=== PATIENT | female | born 1945 | race Caucasian/White ===

== ENCOUNTER 2019-07-02 13:17 | Inpatient (IN) | payer MEDICARE ==
[~2019-07-02] VITALS: Ht 162.5 cm; Wt 97.2 kg
--- NOTE | ~2019-07-02 | WRIGHTHP ---
[place], [place] PATIENT HISTORY AND PHYSICAL EXAM NAME[id number] UNIT #: [id number] ROOM: 532 DOCTOR: CAMILA COOK DPM BIRTHDATE: [birth year] DOS: 07/02/2019 INDICATION: The patient is seen for a wet gangrene of the left great toe. She had an elevated white count consistent with infection. In talking with the patient, she does not know when she developed this, and is a very poor historian and obviously has neuropathy. She was brought in the hospital, admitted and she understands she may lose part of her toe if not part of her foot and possibly leg. With this in mind, she understands. She understands and consents. The intention is to do limb salvage. With this in mind, she agreed to consent to site marking and agreed with the perioperative management. Her granddaughter was there in the preoperative holding area, understanding pros, cons, risks, and benefits. CAMILA COOK DPM CM:HISPHYS:PATIENT HISTORY AND PHYSICAL EXAMINATION 1254 [id number] CAMILA COOK DPM 07/18/19 1448 interface
--- NOTE | ~2019-07-02 | PR ---
[place], [place] PROGRESS NOTE [id number] UN[facility] #: [id number] ROOM: 532 DOCTOR: ANKUSH OATES DPM BIRTHDATE: [birth year] DOS: 07/06/2019 SUBJECTIVE: The patient was seen for postop of amputation, left great toe. The patient is resting comfortably in bed. OBJECTIVE FINDINGS: Posterior splint, compressive cast, and wound VAC in place. No breakthrough bleeding. No signs of calf pain or complication. ASSESSMENT: Postop left. PLAN: Continue offloading wound VAC and dressing. Recheck for followup tomorrow. ANKUSH OATES DPM CM:VALERIA [id number] ANKUSH OATES DPM 07/06/19 1312 interface
--- NOTE | ~2019-07-02 | O ---
[place], [place] OPERATIVE NOTE NAME: ERNESTINA ROCHA UNIT #: [id number] ROOM: 532 DOCTOR: CAMILA COOK DPM BIRTHDATE: [birth year] DOS: 07/02/2019 SURGEON: Camila Cook DPM ASSISTANTS: 1. Dr. Timmy Negron (fellow). 2. Kvng Echeverria, PGY-3. PREOPERATIVE DIAGNOSIS: Osteomyelitis of the left great toe and possible first metatarsal. POSTOPERATIVE DIAGNOSIS: Osteomyelitis of the left great toe and possible first metatarsal. PROCEDURE: 1. Incision and drainage, bone debridement of the great toe and part of first metatarsal. 2. Application of negative pressure therapy and wound VAC. DESCRIPTION OF PROCEDURE: The patient was seen in preoperative holding area, appropriate site marking was performed. She and her family concurred. She was brought into OR, placed on the OR table and anesthesia was achieved. Once the anesthesia was achieved, her left leg was prepped and draped in sterile fashion. Appropriate time-out was performed and every one concurred. PROCEDURE #1: INCISION AND DRAINAGE, BONE DEBRIDEMENT, BONE BIOPSY OF THE LEFT LEG: At this time, the wound was noted to be very necrotic and a full-thickness sharp excisional debridement was performed with a #10 blade, excising and removing the soft tissue. The soft tissue was sent for Gram stain, aerobic, anaerobic, fungal, acid fast as well as a biopsy. Next, at this time using rongeurs and curettes, the bone was debrided extensively on the first metatarsal. Bone was sent for Gram stain, aerobic, fungal, acid fast, as well as biopsy. Significant amount of time was set preparing and irrigating the wound. The wound was irrigated significantly. PROCEDURE #2: APPLICATION OF NEGATIVE PRESSURE THERAPY: At this time, a KCI wound VAC was applied at 200 mmHg under continuous fashion. Dry sterile dressing applied to the left lower extremity. She tolerated the procedure and anesthesia well, left the OR with vital signs stable and vascular intact. [place], [place] OPERATIVE NOTE NAME: ERNESTINA ROCHA UNIT #: [id number] ROOM: 532 DOCTOR: CAMILA COOK DPM BIRTHDATE: [birth year] CAMILA COOK DPM CM:OPRECORD:OPERATIVE NOTE 1254 1423 CAMILA COOK DPM 07/03/19 1545 interface
--- NOTE | ~2019-07-02 | PR ---
[place], [place] PROGRESS NOTE NAME: ERNESTINA ROCHA UNIT #: [id number] ROOM: 532 DOCTOR: DALJIT EUGENEJANUARY BIRTHDATE: [birth year] DOS: 07/07/2019 SUBJECTIVE: The patient is a 74-year-old female who is being followed for wet gangrene of her left talus. 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 She also had left leg cellulitis. She is currently on IV Zosyn and vancomycin. WBCs are improving down to 12.6 at last check on the . She has been afebrile, has occasional pain in her left foot. Denies nausea, vomiting or diarrhea. Has a dry cough, no shortness of breath. Labs vancomycin trough 12.1. Reviewing her cultures. Admitting blood cultures with Adri cuello. Foot cultures grew Proteus. Left great toe culture grew E. coli and Morganella. Urine culture grew E. coli. Repeat blood cultures have been sterile. PHYSICAL EXAMINATION: VITAL SIGNS: Temperature 98.2, pulse 74, respirations 20, BP 153/89. GENERAL: A 74-year-old female, in no acute distress. HEAD, EYES, EARS, NOSE AND THROAT: Normocephalic and have strabismus. NECK: Supple. No thrush. LUNGS: Clear to auscultation bilaterally. Respirations even and unlabored. HEART: Regular rhythm. No murmur appreciated. ABDOMEN: Soft, nondistended. EXTREMITIES: No edema. She has PICC in the right upper extremity. Dressing dry and intact. Bilateral feet are dressed. Left with a bulky dressing with a wound VAC in place. SKIN: Warm, dry, free of rashes. ASSESSMENT: Left hallux wet gangrene, status post amputation at the MTP. Finegoldia bacteremia would have to question of possible contaminant versus true bacteremia. PLAN: She is to continue vancomycin and Zosyn, anticipated for 2 weeks of IV antibiotics. JANUARY JABIER BOCANEGRA [place], [place] PROGRESS NOTE NAME: ERNESTNIA ROCHA UNIT #: [id number] ROOM: 532 DOCTOR: DALJIT PRODUCTION LINE MANAGER,JANUARY BIRTHDATE: [birth year] Supriya Junior MD CM:PNEMI 39 01 DALJIT EUGENE 07/07/191958 interface
--- NOTE | ~2019-07-02 | EKG ---
[place], [place] ELECTROCARDIOGRAM REPORT NAME: ERNESTINA ROCHA UNIT #: [id number] ROOM: 532 DOCTOR: TAMMY DRAFT REPORT BIRTHDATE: [birth year] [facility] Test Date: 2019-07-02 Test Time: 13:55:21 Pat Name: ERNESTINA ROCHA Department: Room: 532 Gender: F Ibm Bpm Architect: Ladonna Novak : 1945 Requested By: PB SALVADOR Order Number: [id number] Reading MD: Dion Roach MD Measurements Intervals [place] Rate: 117 P: 35 VA: 159 QRS: 32 QRSD: 88 T: 44 QT: 306 QTc: 427 Interpretive Statements Sinus tachycardia ST elevation, consider inferior injury Electronically Signed On 07-03-2019 14:13:19 PDT by Dion Roach MD CM:EKGRPT:ELECTROCARDIOGRAM REPORT 1355 1413 PB MUNOZ DRAFT REPORT PB SALVADOR MD
--- NOTE | ~2019-07-02 | WRIGHTHP ---
[place], [place] PATIENT HISTORY AND PHYSICAL EXAM [id number] UN[facility] #: [id number] ROOM: 532 DOCTOR: CAMILA COOK DPM BIRTHDATE: [birth year] DOS: 07/02/2019 LOWER EXTREMITY PHYSICAL EXAM: VASCULAR: There is certainly a significant amount of decrease in pedal pulses; however, hard to tell if there is now severe peripheral edema. She has very significant peripheral edema 3/5 on the right lower leg and foot. She did have conditions of the skin where there appeared to be a component of vascular disease associated with this. NEUROLOGICAL: Complete loss of protective sensation secondary to peripheral neuropathy. DERMATOLOGIC: Open necrotic tissue of distal aspect of great toe. The wound is necrotic and there is a foul odor noted to it as well. MUSCULOSKELETAL: There is a loss of function of the first ray. ORTHOPEDIC EXAM: Consistent with gangrene and osteomyelitis of the right first great toe. CAMILA COOK DPM CM:HISPHYS:PATIENT HISTORY AND PHYSICAL EXAMINATION 1254 1413 CAMILA COOK DPM 07/03/19 1515 interface
--- NOTE | ~2019-07-02 | PR ---
[place], [place] PROGRESS NOTE NAME: ERNESTINA ROCHA UNIT #: [id number] ROOM: 532 DOCTOR: FRANCISCO BURNS MD BIRTHDATE: [birth year] DOS: 07/07/2019 ADDENDUM I agree with the assessment and plan, reviewed the labs and imaging, made the necessary changes in the note. It also contains attestation to the addendum done on the same day, 07/07/2019. Francisco Burns MD CM:VALERIA [id number] FRANCISCO BURNS MD 08/08/19 0357 interface
[~2019-07-02 13:17] MED LIST: ASPIRIN EC81 MG PO; COZAAR100 MG PO; GLIPIZIDE10 MG PO; GLYBURIDE; HUMULIN 70/30 710 M1 SC; HYDR12.5C PO; LOPID600 MG PO; LOPRESSOR50 MG PO; METFORMIN1000 MG PO; OTHER MEDS
[2019-07-02 13:20] VITALS: BP 144/60
[2019-07-02 14:18] LABS: BASO # 0.1 10*3/uL (0.0-0.1); BASO % 0.3 % (0.0-1.0); EOS % 0.2 % (1.0-4.0); HEMATOCRIT 40.7 % (37.0-47.0); HEMOGLOBIN 13.5 g/dl (12.0-16.0); LYMPH # 1.4 10*3/uL (1.3-4.4); LYMPH % 9.9 % (27.0-41.0); MEAN CELL VOLUME 89.1 fl (81.0-99.0); MEAN CORPUSCULAR HGB 29.5 pg (27.0-31.0); MEAN CORPUSCULAR HGB CONC 33.2 g/dl (33.0-37.0); MONO % 6.9 % (3.0-9.0); NEUT # 11.9 10*3/uL (2.3-7.9); NEUT % 82.3 % (47.0-73.0); PLATELET COUNT AUTOMATED 386 10*3/uL (130-400); RED BLOOD COUNT 4.57 10*6/uL (4.10-5.10); RED CELL DISTRI WIDTH 12.2 % (0-14.5); WHITE BLOOD COUNT 14.5 10*3/uL (4.8-10.8)
[2019-07-02 14:32] LABS: ACT PARTIAL THROMBO TIME 26.3 SECONDS (20.0-32.1)
[2019-07-02 14:35] LABS: ALBUMIN 2.8 gm/dl (3.1-4.5); ALKALINE PHOSPHATASE 126 U/L (45-117); BUN 17 mg/dl (7-24); CHLORIDE 96 mmol/L (98-107); CREATININE 1.09 mg/dL (0.55-1.02); SGOT/AST 21 IU/L (3-35); SGPT/ALT 18 U/L (12-78); SODIUM 131 mmol/L (136-145); TOTAL PROTEIN 8.8 gm/dL (6.4-8.2)
[2019-07-02 14:40] LABS: TROPONIN I < 0.015 ng/ml (<0.045)
--- NOTE | 2019-07-02 15:10 | NUR ---
WOUND 1 NACROTIC/GANGOROUS LEFT GREAT TOE WOUND 2 RIGHT FOOT INCLUDING TOES. EDEMA, ERYTHEMA OPEN AREAS ON TWO OF THE TOES. WOUND 3 LEFT FOOT MINUS TOES. ERYTHEMA AND EDEMA WOUND 4 RIGHT OUTER ELBOW ABRASIONS, SCABS, ERYTHEMA WOUND 5 RIGHT SIDE OF THE ABD TO MIDDLE THIGH LARGE LESIONS WITH ERYTHEMA AROUND THE SITES WOUND 6 BILATERAL BUTTOCK, ERYTHEMA AND LARGE LESIONS/RASH, AN OPEN AREA ON THE RIGHT BUTTOCK WOUND 7 BACK OF BOTH LEGS LARGE LESIONS/RASH WITH ERYTHEMA SURROUNDING THE SITES WOUND 8 FRONT OF BOTH LEGS. EDEMA, ERYTHEMA SOME LESIONS/RASH WOUND 9 ABD/PELVIC AREA. MOSITURE RELEATED SKIN DISORDER ERYTHEMA WOUND 10 PUBIC/VAGINAL, ERYTHEMA, ESCORIATION. THE PT WOULD NOT ALLOW A PICTURE OF THIS AREA.
--- NOTE | 2019-07-02 15:33 | NUR ---
THE PT IS INCONTINENT. A URINE SAMLE HAS NOT BEEN PROVIDED YET
[2019-07-02 16:00] VITALS: BP 122/70
--- NOTE | 2019-07-02 16:25 | NUR ---
US CALLED AND ASKED FOR HELP WITH THE PATIENT. SHE IS GRABBING THE PROBE. PATIENT ATTENDENT KAYDEN WENT OVER THE HELP
[2019-07-02 17:19] VITALS: BP 157/67
[2019-07-02 17:31] LABS: BILIRUBIN NEGATIVE (NEGATIVE); BLOOD 2+ (NEGATIVE); CLARITY CLOUDY (CLEAR); COLOR YELLOW (YELLOW); GLUCOSE 1+ (NEGATIVE); KETONE 1+ (NEGATIVE); LEUKO ESTERASE 2+ (NEGATIVE); NITRITE POSITIVE (NEGATIVE); SPECIFIC GRAVITY 1.025 (1.005-1.030)
[2019-07-02 17:42] LABS: BACTERIA 4+; WBC TNTC wbc/hpf (0-5)
[2019-07-02 17:45] VITALS: BP 122/70
--- NOTE | 2019-07-02 17:45 | NUR ---
A 74, admitted to 5E, under the services of EMMA Peraza DO with a diagnosis of NECROSIS OF LEFT GREAT TOE, SEPSIS. Chief complaint is WOUND CHECK. Patient arrived via stretcher from ER. Monitor applied. Initial assessment completed. Vital signs taken and recorded. EMMA PERAZA DO notified of admission to the unit. Orders received. See assessment for past medical history, medications and allergies. Patient and/or family oriented to unit. [facility] FLOOR visitation policy reviewed. Clothing/patient valuable form completed. RICKY PATEL
[2019-07-02] MEDS ORDERED: CLOPIDOGREL75 MG PO (18:08)
[2019-07-02] MEDS ORDERED: LEVEMIR FL100 UNIT/1 SC (18:08)
[2019-07-02] MEDS ORDERED: HYDROXYZINE HCL25 MG PO (18:09)
[2019-07-02 20:00] VITALS: BP 143/66
[2019-07-03] VITALS (9 sets, daily range): BP systolic 92–148; BP diastolic 38–95
--- NOTE | 2019-07-03 00:23 | NUR ---
PATIENT MEDICATED WITH TYLENOL FOR TEMP OF 100.4. WILL MONITOR FOR EFFECTIVENESS.
--- NOTE | 2019-07-03 06:14 | NUR ---
ROCHAERNESTINA Pantoja [id number] Please refer to the physician's history and physical for past medical history, comorbid conditions, and allergies. Diagnosis: NECROSIS TOE,SEPSIS Yaw Score: 8,VERY HIGH RISK WOUND DESCRIPTIONS: Wound Number: 1 Location of the wound: Left great toe Type of wound: unstageable Thickness: Full Size: 8.0cm x 14.5cm x >0.1cm Tunneling: Unable to determine Undermining: Unable to determine Sinus Tract: Unable to determine Presence of Exudate: Purulent Amount: Moderate Color: Black, yellow, red Odor: Foul Periwound Skin Appearance: Erythema Wound edges: approximated Pain (associated with wound): tender to touch How does patient state this happened? pt stated she doesn't know how long this has been going on but went to the doctors yesterday and they sent her here for an evaluation. Pt had ID in ER by podiatry and area was packed and is scheduled for surgery today. Wound Number: 2 Location of the wound: right 3rd toe Type of wound: unstageable Thickness: Full Size: 1.5cm x 1.1cm x 0.1cm Tunneling: none Undermining: none Sinus Tract: none Presence of Exudate: Serous Amount: Light Color: Brown, yellow, red Odor: None Periwound Skin Appearance: Erythema Wound edges: approximated Pain (associated with wound): none at time of assessment How does patient state this happened? pt stated she is unsure when this started Wound Number: 3 Location of the wound: left foot 2nd toe Type of wound: unstageable Thickness: Full Size: 1.5cm x 5.5cm x 0.1cm Tunneling: none Undermining: none Sinus Tract: none Presence of Exudate: Purulent Amount: Light Color: Brown, yellow, black Odor: foul Periwound Skin Appearance: Erythema Wound edges: approximated Pain (associated with wound): none at time of assessment How does patient state this happened? pt is unsure when this started Wound Number: 4 Location of the wound: right outer elbow Thickness: Full Size: 2.0cm x 1.7cm x <0.1cm Tunneling: none Undermining: none Sinus Tract: none Presence of Exudate: none Amount: None Color: brown, yellow Odor: None Periwound Skin Appearance: Scar Wound edges: approximated Pain (associated with wound): none at time of assessment How does patient state this happened? pt stated she fell multiple times and is unsure of when this occured Wound Number: 5 Location of the wound: right buttocks distal Type of wound: stage 3 Thickness: Full Size: 0.7cm x 0.7cm x <0.1cm Tunneling: none Undermining: none Sinus Tract: none Presence of Exudate: Serosanguineous Amount: Light Color: Yellow, red Odor: None Periwound Skin Appearance: erythema Wound edges: approximated Pain (associated with wound): none at time of assessment How does patient state this happened? pt stated she fell multiple times and was unable to get up Wound Number: 6 Location of the wound: right buttocks proximal Type of wound: unstageable Thickness: Full Size: 0.4cm x 0.4cm x <0.1cm Tunneling: none Undermining: none Sinus Tract: none Presence of Exudate: none Amount: None Color: Black Odor: None Periwound Skin Appearance: Erythema Wound edges: approximated Pain (associated with wound): none at time of assessment How does patient state this happened? pt stated she fell multiple times and was unable to get up Wound Number: 7 Location of the wound: intergluteal fold Type of wound: stage 2 Thickness: Partial Size: 1.0cm x 0.5cm x 0.1cm Tunneling: none Undermining: none Sinus Tract: none Presence of Exudate: Serosanguineous Amount: Light Color: Red Odor: None Periwound Skin Appearance: Normal Wound edges: approximated Pain (associated with wound): none at time of assessment How does patient state this happened? pt stated she fell multiple times and was unable to get up Wound Number: 8 Location of the wound: right 5th toe Type of wound: unstageable Thickness: Full Size: 0.4cm x 0.4cm x <0.1cm Tunneling: none Undermining: none Sinus Tract: none Presence of Exudate: none Amount: None Color: Brown, red Odor: None Periwound Skin Appearance: erythema Wound edges: approximated Pain (associated with wound): none at time of assessment How does patient state this happened? pt is unsure of when this started Wound Number: 9 Location of the wound: right 5th proximal Type of wound: unstageable Thickness: Full Size: 0.4cm x 0.3cm x <0.1cm Tunneling: none Undermining: none Sinus Tract: none Presence of Exudate: none Amount: None Color: Brown, red Odor: None Periwound Skin Appearance: Erythema Wound edges: approximated Pain (associated with wound): none at time of assessment How does patient state this happened? pt stated she is unsure of when this started Wound Number: 10 Location of the wound: right lateral apsect of lower extremity Thickness: Full Size: 0.4cm x 0.4cm x <0.1cm Tunneling: none Undermining: none Sinus Tract: none Presence of Exudate: none Amount: None Color: Brown, yellow Odor: None Periwound Skin Appearance: Erythema Wound edges: approximated Pain (associated with wound): none at time of assessment How does patient state this happened? pt stated she is unsure of when this happened Wound Number: 11 Location of the wound: right anterior aspect of lower extremity Thickness: Full Size: 0.9cm x 0.4cm x <0.1cm Tunneling: none Undermining: none Sinus Tract: none Presence of Exudate: none Amount: None Color: Brown, yellow Odor: None Periwound Skin Appearance: Erythema Wound edges: approximated Pain (associated with wound): none at time of assessment How does patient state this happened? pt stated she is unsure of when this started Wound Number: 12 Location of the wound: left lower extremity medial aspect Thickness: Full Size: 0.2cm x 0.6cm x <0.1cm Tunneling: none Undermining: none Sinus Tract: none Presence of Exudate: none Amount: None Color: Brown, red Odor: None Periwound Skin Appearance: Erythema Wound edges: approximated Pain (associated with wound): none at time of assessment How does patient state this happened? pt stated she is unsure when this happened Wound Number: 13 Location of the wound: left buttocks, left upper thigh and left lower back Type of wound: DTI Size: 37.0cm x 31.0cm x <0.1cm Tunneling: none Undermining: none Sinus Tract: none Presence of Exudate: none Amount: None Color: Purple, dark red Odor: None Periwound Skin Appearance: Normal Wound edges: approximated Pain (associated with wound): none at time of assessment How does patient state this happened? pt stated that she fell multiple times and was unable to get up Wound Number: 14 Location of the wound: right buttocks, right upper thigh, right lower back Type of wound: DTI Size: 46.0cm x 40.0cm x <0.1cm Tunneling: none Undermining: none Sinus Tract: none Presence of Exudate: none Amount: None Color: Purple, dark red Odor: None Periwound Skin Appearance: Normal Wound edges: approximated Pain (associated with wound): none at time of assessment How does patient state this happened? pt stated that she fell multiple times and was unable to get up Wound Number: 15 Location of the wound: right lateral breast Type of wound: DTI Thickness: Size: 5.0cm x 9.5cm x <0.1cm Tunneling: none Undermining: none Sinus Tract: none Presence of Exudate: Amount: None Color: Purple Odor: None Periwound Skin Appearance: Normal Wound edges: approximated Pain (associated with wound): none at time of assessment How does patient state this happened? pt stated that she fell multiple times and was unable to get up Wound Number: 16 Location of the wound: left 3rd toe Type of wound: unstageable Thickness: Full Size: 0.4cm x 0.2cm x<0.1cm Tunneling: none Undermining: none Sinus Tract: none Presence of Exudate: none Amount: None Color: Black Odor: None Periwound Skin Appearance: erythema Wound edges: approximated Pain (associated with wound): none at time of assessment How does patient state this happened? pt stated that she fell multiple times and was unable to get up Surface the patient is resting on: Isoflex SKIN PREVENTION RECOMMENDATION: 1. Pressure redistribution support surface as appropriate 2. Elevate heels 3. Remove boots/TEDS every shift and reapply 4. Head of bed 30 degrees as tolerated 5. Assess nutrition and hydration 6. Manage moisture 7. Avoid the use of containment devices while in bed 8. Use absorptive products on surfaces limit layers of linens on bed 9. Turn and reposition every 1-2 hours in bed and every 1 hour in chair as tolerated 10. Weight shifts every 15 minutes while up in chair 11. Offloading with pillows or device to keep heels elevated off bed 12. Monitor skin at least every shift 13. Inspect under medical devices twice a day WOUND TREATMENT RECOMMENDATIONS: Podiatry is already on consult. Consult ID for areas to bilateral lower extremities. Patient is scheduled for surgery today await post op orders to bilateral lower extremities. Full thickness guidelines: Cleanse right outer elbow with nss and apply sureprep around the wound therahoney to wound bed and cover with optifoam gentle. Full thickness guidelines: Cleanse right distal buttocks and right proximal buttocks with nss and apply sureprep around the wound therahoney to wound bed and cover with optifoam gentle. Partial thickness guidelines: Cleanse intergluteal fold with nss and apply sureprep around the wound therahoney to wound bed and cover optifoam gentle. DTI guidelines: Cleanse left upper thigh, left buttocks, left lower back, right upper thigh, right buttocks, right lower back and right breast with soap and water pat area dry then apply hydraguard every shift and prn for soiling. Wheelchair cushion when oob, Heel raiser pro boots while in bed. Consult Dr. Hernandes for areas to buttocks and DTI areas.
[2019-07-03 06:15] LABS: BASO # 0.1 10*3/uL (0.0-0.1); BASO % 0.4 % (0.0-1.0); EOS # 0.1 10*3/uL (0.0-0.4); HEMATOCRIT 35.7 % (37.0-47.0); HEMOGLOBIN 11.4 g/dl (12.0-16.0); LYMPH # 2.3 10*3/uL (1.3-4.4); LYMPH % 16.7 % (27.0-41.0); MEAN CELL VOLUME 90.6 fl (81.0-99.0); MEAN CORPUSCULAR HGB 28.9 pg (27.0-31.0); MEAN CORPUSCULAR HGB CONC 31.9 g/dl (33.0-37.0); MEAN PLATELET VOLUME 10.2 fl (9.6-12.3); MONO % 7.7 % (3.0-9.0); NEUT % 73.7 % (47.0-73.0); PLATELET COUNT AUTOMATED 324 10*3/uL (130-400); RED BLOOD COUNT 3.94 10*6/uL (4.10-5.10); RED CELL DISTRI WIDTH 12.3 % (0-14.5); WHITE BLOOD COUNT 13.6 10*3/uL (4.8-10.8)
[2019-07-03 06:51] LABS: ALBUMIN 2.3 gm/dl (3.1-4.5); BUN 14 mg/dl (7-24); CHLORIDE 103 mmol/L (98-107); CREATININE 1.05 mg/dL (0.55-1.02); PHOSPHOROUS 3.1 mg/dL (2.5-4.9); POTASSIUM 3.7 mmol/L (3.5-5.1); SGOT/AST 33 IU/L (3-35); SGPT/ALT 25 U/L (12-78); SODIUM 137 mmol/L (136-145); TOTAL PROTEIN 7.4 gm/dL (6.4-8.2)
[2019-07-03 06:52] LABS: ALKALINE PHOSPHATASE 134 U/L (45-117)
--- NOTE | 2019-07-03 08:22 | NUR ---
Dr. Mcghee notified of wound care recommendations.
--- NOTE | 2019-07-03 09:10 | NUR ---
PT IS OUT OF ROOM IN SURGERY. WILL FOLLOW.
--- NOTE | 2019-07-03 09:13 | NUR ---
Nursing screen received and chart reviewed. Patient admitted for concern of left toe. If there is a change in ADL status or functional transfers, please send OT orders. Thank you. Akosua Hernandez, OTR/L
--- NOTE | 2019-07-03 09:17 | NUR ---
PHYSICAL THERAPY Nursing screen received and chart reviewed. Please order physical therapy evaluation when medially appropriate to participate or if functional decline presents. Thank you. Belkis Aguero,PT,DPT.
--- NOTE | 2019-07-03 09:45 | NUR ---
PT OFF THE FLOOR TO SURGERY.
--- NOTE | 2019-07-03 12:01 | NUR ---
DR. BURNS'S OFFICE NOTIFIED OF CONSULT.
--- NOTE | 2019-07-03 12:45 | NUR ---
ERICA was asked by DANIELLA Fleming, if a report was made to [facility]. After review of the patients MR, ERICA reported the patient to -[facility]. ERICA spoke with Evy and reference number is [id number]. -ERICA Ruvalcaba
--- NOTE | 2019-07-03 14:38 | NUR ---
Joint Maker Machine in to talk to patient. Patient states lives at HOME with ALONE. There are NO steps in the home. Physician: SHRUTHI Pharmacy: [facility] Home health services: NONE Patient's level of ADLs: INDEPENDENT Patient has working utilities: YES DME: [facility] [employer] [facility] Follow-up physician's appointment after d/c: WILL BE MADE BY HOSPITALIST NURSE DIRECTOR ON DISCHARGE Does patient want to access PORTAL?: NO Discharge plan PT LIVES AT HOME ALONE. TALKED WITH HER AT LENGTH ABOUT GOING TO A SKILLED FACILITY BEFORE RETURNING HOME FOR REHAB DUE TO WOUND VAC AND FALLS AT HOME. PT STATES I AM NOT SO SURE, MY SON WILL BE IN TONIGHT AND I WILL TALK TO HIM ABOUT IT. ASKED HER IF I COULD CALL HER SON AND SHE STATES NO I WILL TALK TO HIM. ASK HER TO HAVE NURSE CALL ME WHEN HE CAME IN SO I COULD TALK WITH HIM. ALSO INFORMED RN TO CALL IF SHE SAW SON COME IN. STATES SHE NOT SURE ABOUT GOING ANYWHERE BECAUSE SHE HAS A DOG ASK HER WHO WAS TAKING CARE OF DOG NOW, SHE STATES HER SON IS. I TOLD HER I AM SURE THE SON WANTS HER TO GET BETTER AND STRONGER AND WOULD TAKE CARE OF DOG WHILE SHE IS IN REHAB. SHE STATES YES BUT HE COMPLAINS ABOUT IT. WILL CONTINUE TO FOLLOW WITH PT AND SON. . ZACHARY VILLANUEVA
--- NOTE | 2019-07-03 15:11 | NUR ---
dr. whyte's office notified of consult.
--- NOTE | 2019-07-03 23:28 | NUR ---
PATIENT MEDICATED WITH TYLENOL FOR TEMP OF 100.7. WILL MONITOR FOR EFFECTIVENESS.
[2019-07-04] VITALS: BP 108/51
--- NOTE | 2019-07-04 02:18 | NUR ---
PATIENT REPOSITIONED FOR COMFORT. DENIES ANY PAIN AT THIS TIME. BED ALARM ON AND CALL LIGHT WITHIN REACH.
--- NOTE | 2019-07-04 03:27 | NUR ---
Upon discharge recommend patient to follow up for wound care in outpatient setting continue current wound care orders at discharging facility.
--- NOTE | 2019-07-04 06:52 | NUR ---
DR MAYER CALLED WITH POSITIVE BLOOD CULTURE RESULTS.
[2019-07-04 07:07] LABS: BASO # 0.1 10*3/uL (0.0-0.1); BASO % 0.4 % (0.0-1.0); EOS # 0.3 10*3/uL (0.0-0.4); EOS % 2.2 % (1.0-4.0); HEMATOCRIT 35.2 % (37.0-47.0); HEMOGLOBIN 11.1 g/dl (12.0-16.0); LYMPH # 3.1 10*3/uL (1.3-4.4); LYMPH % 24.5 % (27.0-41.0); MEAN CELL VOLUME 90.5 fl (81.0-99.0); MEAN CORPUSCULAR HGB 28.5 pg (27.0-31.0); MEAN CORPUSCULAR HGB CONC 31.5 g/dl (33.0-37.0); MEAN PLATELET VOLUME 10.4 fl (9.6-12.3); NEUT # 8.1 10*3/uL (2.3-7.9); NEUT % 64.3 % (47.0-73.0); PLATELET COUNT AUTOMATED 305 10*3/uL (130-400); RED BLOOD COUNT 3.89 10*6/uL (4.10-5.10); RED CELL DISTRI WIDTH 12.6 % (0-14.5); WHITE BLOOD COUNT 12.6 10*3/uL (4.8-10.8)
[2019-07-04 07:30] LABS: BUN 12 mg/dl (7-24); CHLORIDE 107 mmol/L (98-107); POTASSIUM 3.8 mmol/L (3.5-5.1); SGOT/AST 34 IU/L (3-35); SGPT/ALT 27 U/L (12-78); SODIUM 137 mmol/L (136-145)
[2019-07-04 07:33] LABS: ALKALINE PHOSPHATASE 149 U/L (45-117); CREATININE 0.86 mg/dL (0.55-1.02)
--- NOTE | 2019-07-04 08:51 | NUR ---
MACHINE OPERATIONS SUPERVISOR spoke with the patient while having her sign her Medicare Rights Form. Patient stated she spoke with her son and they were interested in [facility]. MACHINE OPERATIONS SUPERVISOR spoke with [facility] and their is a female bed available. MACHINE OPERATIONS SUPERVISOR faxed over new referral. Will need PT Eval to complet it. Patient will need a 3 night stay and acceptance from [facility]. -ERICA Ruvalcaba
--- NOTE | 2019-07-04 09:30 | NUR ---
DR ARECHIGA IN TO SEE PT.
--- NOTE | 2019-07-04 11:58 | NUR ---
PT HAS BEEN REFERRED TO [facility]. WILL REQUIRE 3 NIGHT STAY AND ACCEPTANCE. WILL CONTINUE TO FOLLOW.
[2019-07-04 12:00] VITALS: BP 123/60
--- NOTE | 2019-07-04 14:00 | NUR ---
Christine was evaluated by occupational therapy this date. She requires increased assist with ADL's and functional transfers secondary to decreased endurance, decreased balance, right LE pain, and limited right LE weight bearing. Patient is currently NWB on her right LE until further clarification for her surgeon. She requires mod assist for bedmobility and sit - stand activities. She is not able to complete functional transfers with a FWW and maintain NWB right LE. Continued occupational therapy in a SNF is recommended when Christine is discharged. Gerri Ibarra OTR/L
--- NOTE | 2019-07-04 14:05 | NUR ---
PHYSICAL THERAPY Physical therapy evaluation complete, 5E. Full evaluation/details to follow. Moderate complexity PT evaluation (50209) per chart review and evaluation. PT to progress bed mobility, transfers, and gait per POC. Recommend SNF at discharge. Thank you. Belkis Aguero,PT,DPT
[2019-07-04 16:00] VITALS: BP 130/47
[2019-07-04 16:02] LABS: ACID FAST SPEC PROCESSING Tissue Grinding (.)
[2019-07-04 16:02] LABS: ACID FAST SPEC PROCESSING Tissue Grinding (.)
--- NOTE | 2019-07-04 18:31 | NUR ---
WAYNE CATHETER REMOVED PER ORDER. PATIENT TOLERATED WELL. TIP INSPECTED. 300ML IN BAG AT TIME OF REMOVAL. PATIENT RESTING IN BED, CALL LIGHT WITHIN REACH. VOICES NO OTHER CONCERNS AT THIS TIME.
[2019-07-04 20:00] VITALS: BP 152/58
[2019-07-05] VITALS: BP 143/68
--- NOTE | 2019-07-05 03:23 | NUR ---
24 HR chart check completed.
--- NOTE | 2019-07-05 04:30 | NUR ---
PATIENT SLEEPING QUIETLY. NO DISTRESS NOTED. CALL LIGHT WITHIN REACH. WOUND VAC INTACT.
--- NOTE | 2019-07-05 07:40 | NUR ---
COIL MACHINE SUPERVISOR faxed updates to Cecy JIN -ERICA Ruvalcaba
--- NOTE | 2019-07-05 07:56 | NUR ---
FIRST ZOSYN PULLED WAS WASTED DUE TO LEAKING. PATIENT CREDITED BACK.
[2019-07-05 08:29] VITALS: BP 148/74
[2019-07-05 10:00] VITALS: BP 155/50
--- NOTE | 2019-07-05 11:15 | NUR ---
PHYSICAL THERAPY Patient seen this am 1:1 for therapy visit and was resting supine in bed upon therapist arrival. Patient identified by name / and reports no c/o's of pain at this time. Patient presents with L LE wound vac and transfers supine to sit EOB with MOD A. Patient performed several sit to stand transfers, wh walker standing support, MOD A and NWB on L LE. Patient completed SPT to bedside chair, needing several v/c's to improve transfer technique / performance. Patient remained semi reclined in chair with call light, tray table, telephone and body alarm for safety. Will continue per POC as tolerated, total treatment time 13 minutes. Zachary Valerio, RESIDENTIAL LIFE DIRECTOR
--- NOTE | 2019-07-05 11:23 | NUR ---
OT NOTE Pt was seen this A.M. 1:1 for 23 minute OT session. Upon arrival pt was supine in bed. Pt identified by name and and had no complaints at this time. Pt presented to therapy with wound vac on L foot and IV in LUE both remained in place throughout entire session. Pt transferred supine to sit EOB with modA X 1 and pt provided with education on techniques for increased I in bed mobility. While sitting EOB requested for pt to stacey R sock and pt was unable at first. Educated pt on compensatory technique and she was then able to complete with SBA. Sit to stand completed from bed level with modA X 2 and use of w/w for UE support. Throughout pt required constant verbal prompts for maintaining NWB status on the LLE and pt was non compliant throughout. Challenged pt's static standing tolerance needed for increased I in self care tasks and functional transfers. Pt was able to tolerate aprox 1 minute before sitting due to fatigue. Extra time given throughout session due to pt's slow rate of performance and verbal prompts for encouragement. Pt was left sitting uproght in the recliner with call light in hand, tray table in place, and body alarm activated for safety. Continue with rec D/C plan to SNF. WILLIAM Deleon
[2019-07-05 12:00] VITALS: BP 96/74
--- NOTE | 2019-07-05 13:00 | NUR ---
DR TOM IN TO SEE PT, ORDERS RECEIVED FOR PICC LINE INSERTION. SURGERY CALLED AND NOTIFIED.
--- NOTE | 2019-07-05 14:22 | NUR ---
PHYSICAL THERAPY CO-SIGN I approve of the Physical Therapy notes written above. IRASEMA JEREZ PT,DPT
--- NOTE | 2019-07-05 14:25 | NUR ---
OT CO-SIGN I APPROVE OF THE NOTES WRITTEN ABOVE. THANK YOU. KUMAR CALL, OTR/L
--- NOTE | 2019-07-05 14:58 | NUR ---
Patient has been accepted at [facility] and can go when medically stable. -ERICA Ruvalcaba
--- NOTE | 2019-07-05 15:41 | NUR ---
DR PELLETIER CALLED AND NOTIFIED OF WOUND VAC SAYING BLOCKAGE. HE STATES HE WILL COME SEE THE PATIENT.
[2019-07-05 16:00] VITALS: BP 155/50
--- NOTE | 2019-07-05 16:00 | NUR ---
DR PELLETIER IN TO SEE PT.
--- NOTE | 2019-07-05 17:00 | NUR ---
CALLED DR PELLETIER RE: WOUND VAC ALARMING BLOCKAGE. WILL AWAIT RETURN CALL.
--- NOTE | 2019-07-05 17:37 | NUR ---
DR PELLETIER CALLED RE: BLOCKAGE ALARM. DR PELLETIER WANTS THE WOUND VAC POWERED OFF AND TURNED BACK ON. TO SEE IF THAT ALLIVATES THE PROBLEM. WILL MONITOR
--- NOTE | 2019-07-05 18:19 | NUR ---
DR STOCK HERE TO SEE PT. DRESSING SURROUNDING WOUND VAC REMOVED TUBING WAS KINKED AT TOP. TUBING LIFTED AND SUCTION REACHIEVED. DRSG REAPPLIED. FUNCTIONING PROPERLY AT THIS TIME. WILL MONITOR.
[2019-07-05 20:00] VITALS: BP 151/60
--- NOTE | 2019-07-05 20:00 | NUR ---
24 HOUR CHART CHECK COMPLETE.
[2019-07-06] VITALS: BP 140/55
[2019-07-06 08:00] VITALS: BP 110/75
--- NOTE | 2019-07-06 08:29 | NUR ---
PATIENT REQUESTING PAIN MEDICATION FOR LEFT FOOT PAIN RATED 8/10 ON 0/10 SCALE. NORCO ADMINISTERED PRESCRIBED. WILL MONITOR FOR EFFECTIVENESS.
[2019-07-06 12:00] VITALS: BP 110/75
[2019-07-06 16:00] VITALS: BP 131/91
[2019-07-06 20:00] VITALS: BP 148/61
--- NOTE | 2019-07-06 20:00 | NUR ---
RESTING IN BED VISITING WITH FAMILY MEMBER. AWAKE & ALERT. SKIN WARM & DRY. LUNGS CLEAR BUT DIMINISHED BILATERALLY WITH NO COUGH NOTED AT THIS TIME. PT. VOICES NO C/O AT THIS TIME. NO DISTRESS NOTED. CALL LIGHT WITHIN REACH.
--- NOTE | 2019-07-06 22:00 | NUR ---
BLOOD SUGAR 267; COVERAGE PER EMAR.
[2019-07-07] VITALS: BP 141/57
--- NOTE | 2019-07-07 06:30 | NUR ---
BLOOD SUGAR 178; 3 UNITS OF COVERAGE GIVEN. PT. VOICES NO C/O AT THIS TIME. CALL LIGHT WITHIN REACH; BED IN LOW LOCKED POSITION.
[2019-07-07 08:00] VITALS: BP 142/81
--- NOTE | 2019-07-07 11:24 | NUR ---
DR BECKFORD NOTIFIED OF POSITIVE BLOOD CULTURES MARGARITA ROSALES. NO NEW ORDERS
[2019-07-07 12:00] VITALS: BP 142/61
[2019-07-07 16:00] VITALS: BP 153/89
[2019-07-07 20:00] VITALS: BP 142/48
[2019-07-08] VITALS: BP 150/59
--- NOTE | 2019-07-08 03:30 | NUR ---
24 HR chart check completed.
--- NOTE | 2019-07-08 03:34 | NUR ---
PATIENT RESTING WITH EYES CLOSED. RESPIRATION EASY AND UNLABORED. NO DISTRESS NOTED. WOUND VAC INTACT AND FUNCTIONING.BED ALARM ON AND CALL LIGHT WITHIN REACH. WILL MONITOR.
[2019-07-08 08:00] VITALS: BP 147/57
--- NOTE | 2019-07-08 08:28 | NUR ---
Patient has been accepted at [facility]. RADIO TIME SALES SUPERVISOR faxed updates to Sondra -ERICA Ruvalcaba
[2019-07-08 12:00] VITALS: BP 144/50
[2019-07-08] MEDS ORDERED: ZOSYN 3.373.375 GM/5 IV (12:05)
--- NOTE | 2019-07-08 12:39 | NUR ---
Chasity STERN stated the Wound Vac would be delivered from [facility] between 4-5pm today.-ERICA Ruvalcaba
--- NOTE | 2019-07-08 13:18 | NUR ---
INDUSTRIAL ENERGY ENGINEER faxed over wound care order and medication script to ERICA Olivo
--- NOTE | 2019-07-08 13:45 | NUR ---
PHYSICAL THERAPY PT SUPINE IN BED UPON ARRIVAL. PT IDENTIFIED BY NAME AND . PT AGREED TO ALL PT TREATMENT THIS VISIT. PT PERFORMED BED MOBILITY WITH Giovanni X2 AND VC'S FOR SAFETY AND TECHNIQUE. PT PERFORMED STS X3 TO AND FROM EOB TO FWW WITH VC'S FOR NWB WITH MODa X2. PT WAS NON- COMPLAINANT WITH NWB EVEN WITH CONSTANT VC'S FOR NWB STATUS. PT PERFORMED SIT TO SUPINE WITH Giovanni X2 WITH VC'S FOR NWB. PT SUPINE IN BED WITH BED ALARM ON AND CALL LIGHT IN HAND UPON ARRIVAL. PT REPORTED NO OTHER NEEDS AT THIS TIME. PT SEEN 1:1 FOR 14 MINS. MARIANELA DARNELL PTA
--- NOTE | 2019-07-08 14:00 | NUR ---
OT NOTE Pt was seen this P.M. 1:1 for 15 minute OT session. Upon arrival pt was supine in bed. Pt identified by name and and had complaints of "4/10 L foot pain." Pt presented to therapy with wound vac in place which remained on throughout entire session. Pt transferred supine to sit EOB with Romulo. Pt completed multiple sit to stand transfers from bed level with modA X 2 and use of w/w for UE support. Challenged pt's static standing tolerance needed for increased I in self care tasks and functional transfers, Pt was able to tolerate aprox 1 minute at a time before sitting due to fatigue. Pt required constant verbal prompts for maintaining NWB status due to pt being non complaint. Pt transferred back into bed sit to supine with modA for assist with BLE. Pt was left supine in bed with call light in hand, tray table in place, and bed alarm activated for safety. Continue with rec D/C plan to SNF. WILLIAM Deleon
--- NOTE | 2019-07-08 14:18 | NUR ---
Wound Vac will be delivered to the 4th floor RN Station between 4pm and 5 pm today. Work Clerks on 4th floor and 5th floor are aware that it will be arriving during this time. After wound change if patient is medically stable she can go to [facility]. -ERICA Ruvalcaba
--- NOTE | 2019-07-08 15:30 | NUR ---
MARINE RADIO INSTALLER AND SERVICER received wound vac from [facility]. MARINE RADIO INSTALLER AND SERVICER notified Work Stablehand. MARINE RADIO INSTALLER AND SERVICER had Belkis- Hotel Yardperson notify Dr. Norton. -ERICA Ruvalcaba
[2019-07-08 16:00] VITALS: BP 143/70
--- NOTE | 2019-07-08 16:31 | NUR ---
DR STALEY NOTIFIED THAT PT CAN GO TO [facility].
--- NOTE | 2019-07-08 17:42 | NUR ---
REPORT CALLED TO ANNABELLE ARMANDO.
--- NOTE | 2019-07-08 17:42 | NUR ---
SON PRESENT AND AWARE OF DISCHARGE.
--- NOTE | 2019-07-08 18:20 | NUR ---
PT DISCHARGED AT THIS TIME VIA [facility]. PICC LINE REMAINS IN UPPER RIGHT ARM. WOUND VAC SENT WITH PATIENT THAT ARRIVED TODAY AND HOSPITAL WOUND VAC RETURNED TO FLOOR AND HEADER UP NOTIFIED.
--- NOTE | 2019-07-09 07:52 | NUR ---
OCCUPATIONAL THERAPY CO-SIGN I approve of the Occupational Therapy notes written above. ROSA CARRION OTR/Gladys
--- NOTE | 2019-07-09 08:07 | NUR ---
PHYSICAL THERAPY CO-SIGN I approve of the Physical Therapy notes written above. IRASEMA JEREZ PT, DPT
--- NOTE | 2019-07-17 09:49 | NUR ---
ERICA received call from [facility] ([phone]). She asked what [place] the patient went to and on what date. -ERICA Ruvalcaba
[2019-08-14 16:05] LABS: ACID FAST CULTURE Negative (.)
[2019-08-14 16:05] LABS: ACID FAST CULTURE Negative (.)
== END 2019-07-08 17:42 | disposition other institution (70) | DRG 853 ==
LOC: ED 13:17 → 5E 16:45 → EDHOLD 16:45 → 5E 17:31
PROVIDERS: Emergency Medicine; Internal Medicine; Student in an Organized Health Care Education/Training Program; ADMIT Internal Medicine
DX: A41.89 Other specified sepsis (principal); N17.0 Acute kidney failure with tubular necrosis; E43 Unspecified severe protein-calorie malnutrition; E87.1 Hypo-osmolality and hyponatremia; E13.52 Other specified diabetes mellitus with diabetic peripheral angiopathy with gangrene; I96 Gangrene, not elsewhere classified; L03.116 Cellulitis of left lower limb; M86.8X7 Other osteomyelitis, ankle and foot; R65.20 Severe sepsis without septic shock; I10 Essential (primary) hypertension; E87.8 Other disorders of electrolyte and fluid balance, not elsewhere classified; S90.415A Abrasion, left lesser toe(s), initial encounter; E13.69 Other specified diabetes mellitus with other specified complication; S90.414A Abrasion, right lesser toe(s), initial encounter; E78.5 Hyperlipidemia, unspecified; E13.621 Other specified diabetes mellitus with foot ulcer; S51.001A Unspecified open wound of right elbow, initial encounter; I87.2 Venous insufficiency (chronic) (peripheral); L97.529 Non-pressure chronic ulcer of other part of left foot with unspecified severity; S31.819A Unspecified open wound of right buttock, initial encounter; S81.802A Unspecified open wound, left lower leg, initial encounter; S81.801A Unspecified open wound, right lower leg, initial encounter; E13.40 Other specified diabetes mellitus with diabetic neuropathy, unspecified; S31.829A Unspecified open wound of left buttock, initial encounter; E13.65 Other specified diabetes mellitus with hyperglycemia; B96.20 Unspecified Escherichia coli [E. coli] as the cause of diseases classified elsewhere; X58.XXXA Exposure to other specified factors, initial encounter; Y93.89 Activity, other specified; Y92.89 Other specified places as the place of occurrence of the external cause; Y99.8 Other external cause status; Z87.891 Personal history of nicotine dependence; Z90.49 Acquired absence of other specified parts of digestive tract; Z95.1 Presence of aortocoronary bypass graft; Z90.710 Acquired absence of both cervix and uterus; I25.2 Old myocardial infarction; Z79.4 Long term (current) use of insulin; Z79.02 Long term (current) use of antithrombotics/antiplatelets; Z79.82 Long term (current) use of aspirin; Z79.899 Other long term (current) drug therapy; Z68.36 Body mass index [BMI] 36.0-36.9, adult

== ENCOUNTER → 2019-07-31 | Day surgery (SDC) | payer MEDICARE ==
[~2019-07-31] VITALS: Ht 162.5 cm; Wt 94.3 kg
[~2019-07-31] MED LIST changes: +CLOPIDOGREL75 MG PO; +HYDROXYZINE HCL25 MG PO; +LEVEMIR FL100 UNIT/1 SC; +THEREMS-M1 EACH PO; +ULTRAM50 MG PO; +ZOSYN 3.373.375 GM/5 IV
--- NOTE | ~2019-07-31 | WRIGHTHP ---
[place], [place] PATIENT HISTORY AND PHYSICAL EXAM [id number] UNIT #: [id number] ROOM: DOCTOR: CAMILA COOK DPM BIRTHDATE: [birth year] DOS: 07/31/2019 INDICATION NOTE The patient was seen for post-partial amputation of her first ray in particular her great toe of the left foot. Today she is set for re-debridement, application of Somagen graft and wound VAC. She is aware of pros, cons, risks, benefits, overcorrection, under correction, recurrence, infection, worsening of limb loss, DVT, PE. She understands she is at risk for limb loss in particular and even . With this in mind, she agreed to consent, site marking, agreed to the perioperative management. With this in mind, she agreed with all this and consent was signed. CAMILA COOK DPM CM:HISPHYS:PATIENT HISTORY AND PHYSICAL EXAMINATION 1051 [id number] CAMILA COOK DPM 08/05/19 0953 interface
--- NOTE | ~2019-07-31 | O ---
[place], [place] OPERATIVE NOTE [id number] UNIT #: [id number] ROOM: DOCTOR: CAMILA COOK DPM BIRTHDATE: [birth year] DOS: 07/31/2019 SURGEON: Camila Cook DPM ASSISTANTS: 1. Dr. Timmy Negron. 2. Lucy Gandhi, PGY3. PREOPERATIVE DIAGNOSES: 1. Osteomyelitis of the first metatarsal, left foot. 2. Open wound, medial aspect of second toe down to the fascia. POSTOPERATIVE DIAGNOSES: 1. Osteomyelitis of the first metatarsal, left foot. 2. Open wound, medial aspect of second toe down to the fascia. PROCEDURES: 1. Incision and drainage, bone debridement and bone biopsy of the first metatarsal. 2. Full thickness sharp excision of the second toe down to fascia. 3. Application of SOMAGEN graft. 4. Application of wound VAC. The patient was seen in preoperative holding area. Appropriate site marking was performed. She concurred with consent and preoperative management and site marking. She was brought in OR, placed well padded on OR table where anesthesia was achieved. Once the anesthesia was achieved, appropriate timeout was performed, everybody in the room concurred. PROCEDURE #1: Attention directed to the first metatarsophalangeal joint of the left foot where a wide excision was performed of the soft tissue. All necrotic tissue was excised, removed in total. This was sent for Gram stain, aerobic, anaerobic, fungal, acid fast as well as biopsy of the left wound site of the first metatarsophalangeal joint. Next, bone was debrided, bone was removed. Bone was sent for Gram stain, aerobic, anaerobic, fungal, acid fast as well as biopsy of the left first metatarsal. The area was irrigated with copious amounts of sterile saline. PROCEDURE #2: INCISION AND DRAINAGE, REMOVAL OF DEEP FASCIAL TISSUES OF THE SECOND TOE: Attention was directed to the second toe where a rongeur was used to excise and remove all deep fascial tissues from the second toe, stimulated bleeding. All necrotic tissue was completely exposed at this time. Tissue was sent for Gram stain, aerobic and anaerobic, fungal, acid fast as well. PROCEDURE #3: APPLICATION OF SOMAGEN: SOMAGEN was applied to the wound of the first metatarsal and also medial aspect of the second toe. This was stapled in a usual sterile fashion. PROCEDURE 4: APPLICATION OF NEGATIVE PRESSURE THERAPY, WOUND VAC: This was applied to the first metatarsal area in the usual sterile fashion, set at 200 [place], [place] OPERATIVE NOTE NAME: ERNESTINA ROCHA UNIT #: [id number] ROOM: DOCTOR: CAMILA COOK DPM BIRTHDATE: [birth year] continuous. The rest of the wounds were dressed with Adaptic, 4 x 4s, Nandini in a sterile compressive fashion. She tolerated the procedures and anesthesia well and left the OR with vital signs stable and vascular status intact. CAMILA COOK DPM CM:OPRECORD:OPERATIVE NOTE 1051 [id number] CAMILA COOK DPM 07/31/19 1549 interface
--- NOTE | ~2019-07-31 | WRIGHTHP ---
[place], [place] PATIENT HISTORY AND PHYSICAL EXAM NAME: ERNESTINA ROCHA [facility] #: [id number] UNIT #: [id number] ROOM: DOCTOR: CAMILA COOK DPM BIRTHDATE: [birth year] DOS: 07/31/2019 LOWER EXTREMITY PHYSICAL EXAM: VASCULAR: She has palpable pedal pulses, 2/4 DP and PT. Good cap fill time. NEUROLOGICAL: She has loss of protective sensation secondary to diabetic peripheral neuropathy. DERMATOLOGIC: She has an open wound of the previous amputation site, which measures 4.0 x 4.0 cm, full thickness in nature, right down to the bone and cartilage of the first metatarsal head. There is necrotic tissue around the area. There is no cardinal signs of acute infection, chronic and necrotic tissue noted. All surgical wound of the second toe medial aspect measures 1.0 x 0.5 down to the fascia. No evidence of acute infection, drainage, foul odor, undermining tunneling noted either. MUSCULOSKELETAL: She has a tight posterior muscle group. ORTHOPEDIC: Osteomyelitis of the first metatarsal of the left foot. CAMILA COOK DPM CM:HISPHYS:PATIENT HISTORY AND PHYSICAL EXAMINATION 1051 [id number] CAMILA COOK DPM 07/31/19 1243 interface
[2019-07-31 10:52] VITALS: BP 120/55
[2019-07-31 11:05] VITALS: BP 136/57
[2019-07-31 11:20] VITALS: BP 131/81
[2019-08-01 15:09] LABS: ACID FAST SPEC PROCESSING Tissue Grinding (.)
[2019-09-11 15:10] LABS: ACID FAST CULTURE Negative (.)
== END | disposition home or self-care (01) ==
LOC: SDC 07-30 13:15
PROVIDERS: Podiatrist
DX: M86.172 Other acute osteomyelitis, left ankle and foot (principal); I10 Essential (primary) hypertension; E11.9 Type 2 diabetes mellitus without complications; E78.5 Hyperlipidemia, unspecified; I25.2 Old myocardial infarction; Z98.890 Other specified postprocedural states; Z95.5 Presence of coronary angioplasty implant and graft; Z79.899 Other long term (current) drug therapy

== ENCOUNTER 2019-08-02 08:54 | Inpatient (IN) | payer MEDICARE ==
[~2019-08-02] VITALS: Ht 165.1 cm; Wt 90.4 kg
[2019-08-02] VITALS (7 sets, daily range): BP systolic 124–151; BP diastolic 54–69
--- NOTE | ~2019-08-02 | PR ---
[place], [place] PROGRESS NOTE [id number] UNIT #: [id number] ROOM: 521 DOCTOR: ANKUSH OATES DPM BIRTHDATE: [birth year] DOS: 08/08/2019 SUBJECTIVE: The patient is seen for followup of post-amputation, left hallux and ulceration to the lateral fourth left toe. The patient is resting comfortably in bed. OBJECTIVE: Wound VAC is intact with no signs of calf pain to the left lower extremity, partial thickness ulceration to the lateral fourth left toe. No signs of purulent drainage or foul odor. No tracking, no signs of abscess. ASSESSMENT: Ulceration lateral fourth right toe, status post amputation, bone debridement and bone biopsy with a graft, left foot. PLAN: Continue wound VAC and dressing changes. We will follow the patient while she is in-house. ANKUSH OATES DPM CM:VALERIA [id number] ANKUSH OATES DPM 08/09/19 0138 interface
--- NOTE | ~2019-08-02 | CON ---
[place], [place] REPORT OF CONSULTATION NAME: ERNESTINA ROCHA UNIT #: [id number] ROOM: 521 DOCTOR: DALJIT EUGENE,JANUARY BIRTHDATE: [birth year] DOS: 08/03/2019 HISTORY OF PRESENT ILLNESS: The patient is a 74-year-old female who was admitted from area snf due to fever and malaise. Her temp had gone up to 101.2. The patient was recently discharged from [facility] on Zosyn. She was discharged on 07/08. She had had a left hallux infection. She underwent amputation of that. She was discharged with orders for 2 weeks of IV Zosyn. She was brought back in for further debridement as well as a bone biopsy and SOMAGEN graft on 08/07. Reviewing the pathology from that, it demonstrated acute and chronic osteomyelitis. Again, the patient subsequently couple of days later within 48 hours or so developed fever, unable to get much history from the patient as she is alert and confused. She does not remember being here in June or why she was here. She is a very poor historian. She has a little nausea and has pain in her feet. Whenever they are manipulated, temps have improved. No cough or shortness of breath. She is incontinent of urine. No dysuria to her knowledge. She is being followed by Podiatry, who is managing her wound care dressings. Reviewing her prior charts, the left great toe from 07/03 grew Proteus mirabilis as well as E. coli and Morganella. Gram stain also had gram-positive cocci in pairs and clusters that did not grow. The only culture that I can find from 07/31/2019 is an anaerobic culture that states study is in progress. I do not find an aerobic culture from the surgery on the 07/31. The patient has been started on Zosyn and vancomycin, pending cultures and workup. PAST MEDICAL HISTORY: As above as well as diabetes, hypertension, hyperlipidemia, NM. PAST SURGICAL HISTORY: Hysterectomy, amputation of left great toe, cholecystectomy, CABG x 1, removal of the ganglion cyst. SOCIAL HISTORY: She was admitted from snf, reformed smoker, nondrinker, no illicit drug use. FAMILY AND MEDICAL HISTORY: Unknown nor is it pertinent to chief complaint. CURRENT MEDICATIONS: Include Lantus, Lovenox, Plavix, Protonix, Lopressor, Zosyn, Humalog, vancomycin, morphine, milk of mag, Dulcolax, [place], Tylenol p.r.n. ALLERGIES: No known drug allergies. LABORATORY DATA: WBCs 9.8, they were 11.2 on admission; platelets 273, sed rate of 79. BUN 13, creatinine 0.74. LFTs within normal limits. C-reactive protein 16.9, albumin 2.6. REVIEW OF SYSTEMS: As above in history of present illness. Again, the patient is a very poor historian, rendering review of systems difficult and likely inaccurate. No peripheral edema. No recent changes in vision or hearing. No rash or itch. No cough or shortness of breath. [place], [place] REPORT OF CONSULTATION NAME: ERNESTINA ROCHA UNIT #: [id number] ROOM: 521 DOCTOR: DALJIT EUGENE,JANUARY BIRTHDATE: [birth year] PHYSICAL EXAMINATION: VITAL SIGNS: Temperature 97.9, pulse 73, respirations 18, BP 135/50. GENERAL: A 74-year-old female, in no acute distress, nontoxic in appearance. HEAD, EYES, EARS, NOSE AND THROAT: Normocephalic. Pupils are equal, round and reactive to light. She has strabismus. Oropharynx: Mucous membranes pink and moist. No thrush. NECK: Supple. LUNGS: Clear to auscultation bilaterally. Respirations even and unlabored. HEART: Regular rhythm. No murmur appreciated. ABDOMEN: Soft, nontender, nondistended, positive bowel sounds. EXTREMITIES: Right lower extremity; mild edema, no cellulitis. Left lower extremity; she is wrapped to the knee. She has a wound VAC on the left foot. The 4 exposed toes are red and warm. SKIN: Otherwise, warm, dry, free of rashes. ASSESSMENT: Left foot chronic osteomyelitis, status post amputation of the left hallux. PLAN: At this point, she is going to need a longer course of antibiotics. This is likely due to continuation of the infection from her left hallux. Continue vancomycin and Zosyn. Pending culture results. Need to follow up on the surgical culture results from the 07/31, although again I do not see an aerobic culture as well as the wound cultures that were obtained upon this admission. Again, the pathology is consistent with acute and chronic osteomyelitis from the debridement and bone biopsy on 07/31. ADDENDUM The patient was discharged to the snf; however, she did not complete her course of IV antibiotics and we did not receive a call from the snf. Her proximal margins are also involved and will be treated for longer to 6 weeks of IV antibiotics. I reviewed the labs and imaging, made the necessary changes in the note. ADDENDUM: I agree with the assessment and plan, reviewed the labs and imaging, made the necessary changes in the note. This also contains attestation to the addendum made in the same note. LATRICIA BOCANEGRA CNP [place], [place] REPORT OF CONSULTATION NAME: ERNESTINA ROCHA [place] UNIT #: [id number] ROOM: 521 DOCTOR: DALJIT EUGENEJANUARY BIRTHDATE: [birth year] Supriya Junior MD CM:CONSTR:REPORT OF CONSULTATION 1616 08/21/19 1508 interface
--- NOTE | ~2019-08-02 | PR ---
[place], [place] PROGRESS NOTE [id number] UN[facility] #: [id number] ROOM: 521 DOCTOR: DALJIT EUGENE,JANUARY BIRTHDATE: [birth year] DOS: 08/04/2019 SUBJECTIVE: The patient on whom we are following for a left foot chronic osteomyelitis. Reviewing her cultures from her left foot on the , the Gram stain has gram-positive cocci in pairs and clusters, but the culture is growing heavy gram-negative rods. She also had debridement and biopsy done on the ; however, only an anaerobic culture was sent that is pending. The pathology from that showed acute and chronic osteomyelitis. She is alert and oriented, tolerating the antibiotics. Denies fevers, chills, nausea, vomiting or diarrhea. No rash or itch. No cough or shortness of breath. LABORATORY DATA: Cultures as reviewed above. Blood cultures remained sterile. WBC 7.1, platelets 245, BUN 16, creatinine 0.67. LFTs within normal limits. Albumin 2.3. CURRENT MEDICATIONS: Lantus, Lovenox, Plavix, Protonix, Lopressor, Zosyn, Humalog, vancomycin. PHYSICAL EXAMINATION: VITAL SIGNS: Temperature 97.9, pulse 75, respirations 16, BP 133/55. GENERAL: A 74-year-old female, in no acute distress. HEAD, EYES, EARS, NOSE AND THROAT: Normocephalic. Left strabismus noted. Mucous membranes pink and moist. No thrush. NECK: Supple. LUNGS: Clear to auscultation bilaterally. Respirations even and unlabored. HEART: Regular rhythm. No murmur appreciated. ABDOMEN: Soft, nontender. EXTREMITIES: Right lower extremity +2 to 3 edema, left lower extremity +1 edema, left lower extremity is wrapped to the knee. She has a wound VAC on the foot. Right foot is also dressed. SKIN: Warm, dry, free of rashes. Hep-Lock, no phlebitis right upper extremity. ASSESSMENT: Chronic osteomyelitis of the left foot. She was treated for 2 weeks until approximately 07/22 after amputation of her left great toe. She underwent debridement and bone biopsy on 07/31/2019 at which point it appears that she should have been off of antibiotics. She would have been done with IV antibiotics and pathology from that showed acute and chronic osteomyelitis. The anaerobic culture is pending. There were no aerobic cultures from that surgery. PLAN: We will continue the vancomycin and Zosyn. Follow up on her cultures and adjust antibiotics accordingly. Prior cultures from June can be found in the chart. The patient is going to require at least 6 weeks of IV antibiotics for chronic osteomyelitis. JANUARY JABIER BOCANEGRA [place], [place] PROGRESS NOTE NAME: ROCHAERNESTINA E UNIT #: [id number] ROOM: 521 DOCTOR: DALJIT EUGENE BIRTHDATE: [birth year] Supriyajoey Junior MD CM:PNTRANS [id number] JANUARY DALJIT EUGENE 08/04/19 162 interface
--- NOTE | ~2019-08-02 | CON ---
[place], [place] REPORT OF CONSULTATION NAME: ERNESTINA ROCHA UNIT #: [id number] ROOM: 521 DOCTOR: ANKUSH OATES DPM BIRTHDATE: [birth year] DOS: 08/03/2019 SUBJECTIVE: The patient is a 74-year-old female who had left hallux amputation performed on 07/31/[address] Parks. The patient has a wound VAC in place with a wound graft. PAST MEDICAL HISTORY: Diabetes, hyperlipidemia, hypertension, VA corrosive toe. PAST SURGICAL HISTORY: Hysterectomy, amputation of left great toe, cholecystectomy, CABG x 1, status post removal of ganglion cyst. SOCIAL HISTORY: Former smoker. Denies alcohol or illicit drug use. FAMILY HISTORY: Father and Mother unknown. ALLERGIES: Denies. LOWER EXTREMITY EXAMINATION: The left lower extremity reveals the wound VAC is intact and functioning properly. There is negative Homans sign. No signs of DVT. Diminished pedal pulses bilateral. Decreased protective sensation. No definitive signs of necrosis to the toes of either foot. Post-amputation of the left hallux is noted. Ulceration noted to the lateral aspect of the fourth right toe. No signs of fluctuance or abscess noted. ASSESSMENT: Post-amputation of left hallux, ulceration of lateral fourth right toe, diabetes. PLAN: Evaluation and management. Continue local wound care of lateral fourth right toe, possible further surgical intervention if warranted. The wound VAC was kept intact, orders per Dr. Parks for the wound VAC. We will continue to monitor the toes for any signs of necrosis or postoperative changes. I do not believe the source of infection is from either foot, but the patient is being treated for UTI and that it is my impression. FINAL DIAGNOSIS: Per Infectious Disease. The patient will be seen tomorrow by the podiatry resident. ANKUSH OATES DPM CM:CONSTR:REPORT OF CONSULTATION 1028 08/03/19 1211 interface
--- NOTE | ~2019-08-02 | PR ---
[place], [place] PROGRESS NOTE NAME: ERNESTINA ROCHA UNIT #: [id number] ROOM: 521 DOCTOR: GRANT GUERRERO,FRANCISCO BIRTHDATE: [birth year] DOS: 08/04/2019 ADDENDUM This is an addendum to the progress note done by the nurse practitioner, Naida Han. I agree with the assessment and plan, reviewed the labs and imaging, made the necessary changes in the note. Francisco Burns MD CM:PNTRANS [id number] FRANCISCO BURNS MD 08/08/19 0358 interface
[~2019-08-02 08:54] MED LIST changes: -THEREMS-M1 EACH PO; -ULTRAM50 MG PO
[2019-08-02 09:34] LABS: BASO # 0.1 10*3/uL (0.0-0.1); BASO % 0.4 % (0.0-1.0); EOS # 0.2 10*3/uL (0.0-0.4); EOS % 1.7 % (1.0-4.0); HEMATOCRIT 39.4 % (37.0-47.0); HEMOGLOBIN 13.1 g/dl (12.0-16.0); LYMPH # 1.7 10*3/uL (1.3-4.4); LYMPH % 15.4 % (27.0-41.0); MEAN CELL VOLUME 87.6 fl (81.0-99.0); MEAN CORPUSCULAR HGB 29.1 pg (27.0-31.0); MEAN CORPUSCULAR HGB CONC 33.2 g/dl (33.0-37.0); MEAN PLATELET VOLUME 10.2 fl (9.6-12.3); MONO # 0.9 10*3/uL (0.1-1.0); MONO % 7.6 % (3.0-9.0); NEUT # 8.3 10*3/uL (2.3-7.9); NEUT % 74.5 % (47.0-73.0); PLATELET COUNT AUTOMATED 255 10*3/uL (130-400); RED CELL DISTRI WIDTH 13.3 % (0-14.5); WHITE BLOOD COUNT 11.2 10*3/uL (4.8-10.8)
[2019-08-02 09:48] LABS: ALBUMIN 2.8 gm/dl (3.1-4.5); ALKALINE PHOSPHATASE 102 U/L (45-117); BUN 15 mg/dl (7-24); CHLORIDE 101 mmol/L (98-107); CREATININE 0.81 mg/dL (0.55-1.02); SGOT/AST 20 IU/L (3-35); SGPT/ALT 18 U/L (12-78); SODIUM 135 mmol/L (136-145); TOTAL PROTEIN 8.3 gm/dL (6.4-8.2)
[2019-08-02 09:50] LABS: BILIRUBIN NEGATIVE (NEGATIVE); BLOOD TRACE-INTACT (NEGATIVE); CLARITY CLOUDY (CLEAR); COLOR YELLOW (YELLOW); GLUCOSE NEGATIVE (NEGATIVE); KETONE NEGATIVE (NEGATIVE); LEUKO ESTERASE 1+ (NEGATIVE); NITRITE NEGATIVE (NEGATIVE); SPECIFIC GRAVITY 1.025 (1.005-1.030); UROBILINOGEN 0.2 E.U./dl (0.2-1.0)
[2019-08-02 10:03] LABS: EPITHELIAL CELLS TNTC; WBC 21-30 wbc/hpf (0-5)
[2019-08-02 10:04] LABS: BACTERIA 1+; CALCIUM OXALATE CRYSTALS 1+
--- NOTE | 2019-08-02 14:22 | NUR ---
PT WITH RECENT SKIN GRATFING TO LT FOOT AND TOE ON 07/31 BY TEVIN. PT PRESENT ED WITH WOUND VAC THAT WAS REPLACED BY THE PODITERY RESIDENT. PICTURES WERE NOT TAKEN AT THAT TIME. UNAWARE VAC WAS REMOVED UNTIL IT WAS ALREADY REPLACED. WOUND VAC BELONGS TO [facility].
--- NOTE | 2019-08-02 14:58 | NUR ---
PHYSICAL THERAPY Physical therapy order received. Awaiting weight bearing orders for L LE s/p surgery. thank you Bella Stewart, PT, DPT
--- NOTE | 2019-08-02 15:30 | NUR ---
[facility] HERE TO PUBLIC RELATIONS WRITER PT'S WOUND VAC ON LEFT FOOT. [facility] STATES THE WOUND VAC BELONGS TO THEIR FACILITY.
[2019-08-02] MEDS ORDERED: THEREMS-M1 EACH PO (15:41)
--- NOTE | 2019-08-02 16:15 | NUR ---
Time: 1614 A 74 year old FEMALE admitted to 5E under services of JOANIE WONG DO. Pt. arrived via stretcher from ER. Chief complaint: SEPSIS, WOUND CHECK. JACQUELYN CARREON
--- NOTE | 2019-08-02 20:06 | NUR ---
CALL PLACED TO DR. GRACIE MONAHAN SPOKE WITH MARCO, ADVISED OF CONSULT FOR WOUNDS TO RIGHT TOE AND LEFT GREAT TOE, ADVISED CULTURE HAD BEEN COLLECTED.
--- NOTE | 2019-08-02 22:00 | NUR ---
PATIENT CHANGED D/T INCONTINENCE OF URINE. PATIENT REPOSTIONED ON HER RIGHT SIDE. HEEL PROTECTOR IN PLACE TO RIGHT FOOT. BED IN LOWEST POSITION. BED ALARM ON FOR PATIENT SAFETY. CALL LIGHT WITHIN REACH.
[2019-08-03] VITALS: BP 130/75
--- NOTE | 2019-08-03 00:44 | NUR ---
NOTIFIED DR. HARRIS THAT PATIENTS HEART RATE HAS BEEN 110-115 AND THAT SHE IS ON LOPRESSOR 50MG BID AT HOME BUT HOME MEDS HAD NOT BEEN CONTINUED YET. DR. HARRIS STATED HE WILL TAKE A LOOK AND PLACE ORDERS.
--- NOTE | 2019-08-03 05:05 | NUR ---
PATIENT LAYING IN BED. PATIENT DENIES PAIN AT THIS TIME. WOUND VAC TO LEFT FOOT INTACT. BED IN LOWEST POSITION. CALL LIGHT WITHIN REACH.
[2019-08-03 06:29] LABS: BASO # 0.1 10*3/uL (0.0-0.1); BASO % 0.7 % (0.0-1.0); EOS # 0.2 10*3/uL (0.0-0.4); EOS % 1.9 % (1.0-4.0); HEMOGLOBIN 12.1 g/dl (12.0-16.0); LYMPH # 2.1 10*3/uL (1.3-4.4); LYMPH % 21.2 % (27.0-41.0); MEAN CELL VOLUME 86.2 fl (81.0-99.0); MEAN CORPUSCULAR HGB 28.2 pg (27.0-31.0); MEAN CORPUSCULAR HGB CONC 32.7 g/dl (33.0-37.0); MEAN PLATELET VOLUME 10.3 fl (9.6-12.3); MONO # 0.9 10*3/uL (0.1-1.0); MONO % 8.8 % (3.0-9.0); NEUT # 6.6 10*3/uL (2.3-7.9); NEUT % 67.1 % (47.0-73.0); PLATELET COUNT AUTOMATED 273 10*3/uL (130-400); RED BLOOD COUNT 4.29 10*6/uL (4.10-5.10); RED CELL DISTRI WIDTH 13.3 % (0-14.5); WHITE BLOOD COUNT 9.8 10*3/uL (4.8-10.8)
[2019-08-03 06:41] LABS: ALBUMIN 2.6 gm/dl (3.1-4.5); BUN 13 mg/dl (7-24); CHLORIDE 101 mmol/L (98-107); CREATININE 0.74 mg/dL (0.55-1.02); POTASSIUM 3.8 mmol/L (3.5-5.1); SGOT/AST 18 IU/L (3-35); SGPT/ALT 18 U/L (12-78); SODIUM 135 mmol/L (136-145); TOTAL PROTEIN 7.6 gm/dL (6.4-8.2)
[2019-08-03 06:42] LABS: ALKALINE PHOSPHATASE 110 U/L (45-117); PHOSPHOROUS 2.8 mg/dL (2.5-4.9)
[2019-08-03 08:00] VITALS: BP 146/50
--- NOTE | 2019-08-03 08:20 | NUR ---
PT MEDICATED WITH PO TYLENOL PER PRN ORDER FOR C/O GENERALIZED PAIN/DISCOMFORT. TEMP 99. WILL MONITOR EFFECTIVENESS. WOUND VAC INTACT. CONTINUOUS SUCTION AT 200. WILL CONTINUE TO MONITOR. VSS. CALL LIGHT WITHIN REACH.
--- NOTE | 2019-08-03 09:30 | NUR ---
TYLENOL EFFECTIVE PER PT. WILL CONTINUE TO MONITOR.
[2019-08-03 12:00] VITALS: BP 135/50
--- NOTE | 2019-08-03 15:56 | NUR ---
PT REQUESTED AND RECEIVED PO TYLENOL PER PRN ORDER FOR C/O LEFT FOOT PAIN. WOUND VAC INTACT. RATES PAIN 05/18. WILL MONITOR EFFECTIVENESS.
[2019-08-03 16:00] VITALS: BP 144/51
--- NOTE | 2019-08-03 17:10 | NUR ---
TYLENOL RELIEVING PAIN PER PT.
[2019-08-03 20:00] VITALS: BP 136/55
[2019-08-04] VITALS: BP 144/66
--- NOTE | 2019-08-04 01:30 | NUR ---
PATIENT RESTING IN BED WITH EYES CLOSED. NO SIGNS OR SYMPTOMS OF DISTRESS NOTED. RESPIRATIONS REGULAR AND NON-LABORED. AROUSES TO VERBAL STIMULI. DENIES COMPLAINTS OF PAIN OR DISCOMFORT. WOUND VAC INTACT TO LEFT FOOT. HEEL PROTECTORS ON. WILL CONTINUE TO MONITOR. CALL LIGHT IN REACH.
[2019-08-04 06:19] LABS: ALBUMIN 2.3 gm/dl (3.1-4.5); ALKALINE PHOSPHATASE 112 U/L (45-117); BUN 16 mg/dl (7-24); CHLORIDE 107 mmol/L (98-107); CREATININE 0.67 mg/dL (0.55-1.02); POTASSIUM 3.6 mmol/L (3.5-5.1); SGOT/AST 19 IU/L (3-35); SGPT/ALT 23 U/L (12-78); SODIUM 139 mmol/L (136-145); TOTAL PROTEIN 7.2 gm/dL (6.4-8.2)
[2019-08-04 06:23] LABS: BASO % 0.4 % (0.0-1.0); EOS # 0.5 10*3/uL (0.0-0.4); EOS % 6.8 % (1.0-4.0); HEMATOCRIT 36.8 % (37.0-47.0); LYMPH # 2.2 10*3/uL (1.3-4.4); LYMPH % 31.2 % (27.0-41.0); MEAN CORPUSCULAR HGB 28.4 pg (27.0-31.0); MEAN CORPUSCULAR HGB CONC 32.6 g/dl (33.0-37.0); MEAN PLATELET VOLUME 10.3 fl (9.6-12.3); MONO % 14.6 % (3.0-9.0); NEUT # 3.3 10*3/uL (2.3-7.9); NEUT % 46.7 % (47.0-73.0); PLATELET COUNT AUTOMATED 245 10*3/uL (130-400); RED BLOOD COUNT 4.23 10*6/uL (4.10-5.10); RED CELL DISTRI WIDTH 13.2 % (0-14.5); WHITE BLOOD COUNT 7.1 10*3/uL (4.8-10.8)
--- NOTE | 2019-08-04 06:30 | NUR ---
PHYSICAL THERAPY PT EVAL COMPLETED 08/04/19; FULL EVALUATION TO FOLLOW. RECOMMEND PT WHILE HERE TO ADDRESS DECREASED STRENGTH, ENDURANCE AND BALANCE TO REGAIN ABILITY TO RETURN TO PLOF. ON EVAL PATIENT ADAMENTLY STATES SHE WILL NOT GO TO ANY SNF ON D/C BUT IS WILLING TO HAVE HH IF INDICATED. PT EVAL IS MODERATE COMPLEXITY : [id number]. D/C PLANS HOME WITH HH. THANK YOU FOR REFERRAL [facility]
--- NOTE | 2019-08-04 07:04 | NUR ---
24 HR chart check completed.
[2019-08-04 08:00] VITALS: BP 132/59
--- NOTE | 2019-08-04 11:00 | NUR ---
PHYSICAL THERAPY PT EVAL COMPLETED 08/04/19: FULL EVALUATION TO FOLLOW. RECOMMEND PT WHILE HERE TO ADDRESS DECREASED STRENGTH AND FUNCTIONAL MOBILITY. PT EVAL IS MODERATE COMPLEXITY: [id number]. NEED CLARIFICATION ORDERS ON WB STATUS FROM PODIATRY TO WORK ON TRANSFERS AND GAIT BUT IN THE MEANTIME [employer] WILL BE BENEFICIAL TO ADDRESS BED MOBS AND LE STRENGTHENING. D/C REC: RETURN TO [facility] FOR SNF ONCE MEDICALLY STABLE. THANK YOU FOR REFERRAL [facility]
--- NOTE | 2019-08-04 11:54 | NUR ---
PODIATRY CHANGED PT'S RT FOOT DRESSING.
[2019-08-04 12:00] VITALS: BP 133/55
[2019-08-04 16:00] VITALS: BP 124/60
[2019-08-04 20:00] VITALS: BP 130/44
--- NOTE | 2019-08-04 22:40 | NUR ---
LAB CALLED WITH A CRITICAL VANCO TROUGH OF 24.7. UNAWARE THAT PATIENT WAS GETTING VANCO TROUGH DRAWN AND VANCO HAS ALREADY BEEN RUNNING FOR ABOUT A HALF HOUR PRIOR TO DRAW. PHARMACY NOTIFIED AND WILL RE-SCHEDULE VANCO TROUGH FOR 08/07 AT 2130.
--- NOTE | 2019-08-04 23:00 | NUR ---
[facility] RESCHEDULED FOR 08/06 AT 0930.
[2019-08-05] VITALS: BP 131/49
--- NOTE | 2019-08-05 01:28 | NUR ---
PATIENT RESTING IN BED WITH EYES CLOSED. NO SIGNS OR SYMPTOMS OF DISTRESS NOTED. RESPIRATIONS REGULAR AND NON-LABORED. LUNGS CLEAR ON ROOM AIR. AROUSES TO VERBAL STIMULI. DENIES COMPLAINTS OF PAIN OR DISCOMFORT. PATIENT INCONTINENT WITH BRIEF ON. BED ALARM ON AND FUNCTIONING. WOUND VAC ON AT 200 AND FUNCTIONING PROPERLY. WILL CONTINUE TO MONITOR. CALL LIGHT IN REACH.
[2019-08-05 06:52] LABS: BASO % 0.7 % (0.0-1.0); EOS # 0.4 10*3/uL (0.0-0.4); EOS % 6.2 % (1.0-4.0); HEMATOCRIT 37.6 % (37.0-47.0); HEMOGLOBIN 11.9 g/dl (12.0-16.0); LYMPH # 2.2 10*3/uL (1.3-4.4); LYMPH % 39.2 % (27.0-41.0); MEAN CELL VOLUME 89.1 fl (81.0-99.0); MEAN CORPUSCULAR HGB 28.2 pg (27.0-31.0); MEAN CORPUSCULAR HGB CONC 31.6 g/dl (33.0-37.0); MEAN PLATELET VOLUME 10.2 fl (9.6-12.3); MONO # 0.6 10*3/uL (0.1-1.0); NEUT # 2.4 10*3/uL (2.3-7.9); NEUT % 43.4 % (47.0-73.0); PLATELET COUNT AUTOMATED 295 10*3/uL (130-400); RED BLOOD COUNT 4.22 10*6/uL (4.10-5.10); RED CELL DISTRI WIDTH 13.2 % (0-14.5); WHITE BLOOD COUNT 5.6 10*3/uL (4.8-10.8)
[2019-08-05 07:07] LABS: ALBUMIN 2.5 gm/dl (3.1-4.5); ALKALINE PHOSPHATASE 115 U/L (45-117); BUN 15 mg/dl (7-24); CHLORIDE 107 mmol/L (98-107); CREATININE 0.83 mg/dL (0.55-1.02); POTASSIUM 3.5 mmol/L (3.5-5.1); SGOT/AST 21 IU/L (3-35); SGPT/ALT 22 U/L (12-78); SODIUM 141 mmol/L (136-145); TOTAL PROTEIN 7.2 gm/dL (6.4-8.2)
[2019-08-05 08:00] VITALS: BP 147/56
--- NOTE | 2019-08-05 10:01 | NUR ---
ERNESTINA ROCHA [id number] Please refer to the physician's history and physical for past medical history, comorbid conditions, and allergies. Diagnosis: SEPSIS Yaw Score: 12,HIGH RISK WOUND DESCRIPTIONS: Wound Number: 1 Left hallux unable to view wound at time of assessment due to wound vac and dressing in place at time of assessment. Wound vac settings are 200mmHg continous with low intensity. Toes that were exposed at time of assessment were warm to touch, bright red in color and edema noted. Wound Number: 2 Inner aspect of left second toe unable to view wound at time of assessment due to wound vac and dressing in place at time of assessment. Wound vac settings are 200mmHg continous with low intensity. Toes that were exposed at time of assessment were warm to touch, bright red in color and edema noted. Wound Number: 3 Location of the wound: right 5th toe medial aspect Thickness: Full Size: 1.2cm x 1.5cm x 0.1cm Tunneling: none Undermining: none Sinus Tract: none Presence of Exudate: Serosanguineous Amount: Light Color: Black, brown, yellow, red Odor: None Periwound Skin Appearance: Erythema Wound edges: approximated Pain (associated with wound): none at time of assessment How does patient state this happened? pt stated she has had these for several months now Wound Number: 4 Location of the wound: right 3rd toe Thickness: Full Size: 1.2cm x 1.0cm x 0.1cm Tunneling: none Undermining: none Sinus Tract: none Presence of Exudate: none Amount: None Color: Red Odor: None Periwound Skin Appearance: Erythema Wound edges: approximated Pain (associated with wound): none at time of assessment How does patient state this happened? pt stated she has had these for several months now Wound Number: 5 Right elbow is red and blanchable at time of assessment. No open areas noted at time of assessment. No draiange noted at time of assessement. Patient stated this was from her fall. Wound Number: 6 Location of the wound: right nuñez Thickness: Full Size: 1.6cm x 1.1cm x <0.1cm Tunneling: none Undermining: none Sinus Tract: none Presence of Exudate: none Amount: None Color: Brown, red Odor: None Periwound Skin Appearance: Erythema Wound edges: approximated Pain (associated with wound): none at time of assessment How does patient state this happened? pt stated she has had these for several months now Wound Number: 7 Location of the wound: right 4th toe distal Thickness: Full Size: 0.6cm x 0.3cm x 0.1cm Tunneling: none Undermining: none Sinus Tract: none Presence of Exudate: Serosanguineous Amount: Light Color: Brown, red Odor: None Periwound Skin Appearance: Erythema Wound edges: approximated Pain (associated with wound): none at time of assessment How does patient state this happened? pt stated she has had these for several months now Wound Number: 8 Location of the wound: right 4th toe medial Thickness: Full Size: 1.2cm x 0.3cm x 0.1cm Tunneling: none Undermining: none Sinus Tract: none Presence of Exudate: Serosanguineous Amount: Light Color: Black, yellow Odor: None Periwound Skin Appearance: Erythema Wound edges: approximated Pain (associated with wound): none at time of assessment How does patient state this happened? pt stated she has had these for several months now Wound Number: 9 Location of the wound: right 5th toe lateral aspect Thickness: Full Size: 1.5cm x 0.6cm x 0.1cm Tunneling: none Undermining: none Sinus Tract: none Presence of Exudate: Serosanguineous Amount: Light Color: Brown, red Odor: None Periwound Skin Appearance: Erythema Wound edges: approximated Pain (associated with wound): none at time of assessment How does patient state this happened? pt stated she has had these for several months now Wound Number: 10 Location of the wound: right lateral apsect of foot below 5th toe Type of wound: DTI Size: 0.4cm x 0.6cm x <0.1cm Tunneling: none Undermining: none Sinus Tract: none Presence of Exudate: none Amount: None Color: Purple, dark red Odor: None Periwound Skin Appearance: Erythema Wound edges: closed Pain (associated with wound): none at time of assessment How does patient state this happened? pt stated she has had these for several months now Wound Number: 12 Location of the wound: left groin Type of wound: fungal Thickness: Partial Size: 3.5cm x 0.5cm x 0.1cm Tunneling: none Undermining: none Sinus Tract: none Presence of Exudate: Serous sanguineous Amount: Light Color: Red Odor: Musty Periwound Skin Appearance: Normal Wound edges: approximated Pain (associated with wound): none at time of assessment How does patient state this happened? pt unsure when this started Surface the patient is resting on: Position Pro SKIN PREVENTION RECOMMENDATION: 1. Pressure redistribution support surface as appropriate 2. Elevate heels 3. Remove boots/TEDS every shift and reapply 4. Head of bed 30 degrees as tolerated 5. Assess nutrition and hydration 6. Manage moisture 7. Avoid the use of containment devices while in bed 8. Use absorptive products on surfaces limit layers of linens on bed 9. Turn and reposition every 1-2 hours in bed and every 1 hour in chair as tolerated 10. Weight shifts every 15 minutes while up in chair 11. Offloading with pillows or device to keep heels elevated off bed 12. Monitor skin at least every shift 13. Inspect under medical devices twice a day WOUND TREATMENT RECOMMENDATIONS: Podiatry already on consult for this patient due to patient being post op from surgery on 07/31/19 Id already on consult for this patient due to wound on right toe and left foot. Heel raiser pro boots while in bed to bilateral feet. Wheelchair cushion when oob. D/C full thickness guidelines to areas between 4th and 5th toe since podiatry is following patient. Cleanse bilateral groins with soap and water pat areas dry then apply nystatin powder every 8 hours Await wound care order from podiatry since this is podiatry patient outside of facility and podiatry is already following patient. Upon discharge recommend patient to follow up for wound care in outpatient setting continue current wound care orders at discharging facility.
--- NOTE | 2019-08-05 10:30 | NUR ---
Fermentation Engineer in to see patient. She is short term at [facility] and plans to return there upon discharge. propeller layout worker following.
--- NOTE | 2019-08-05 11:22 | NUR ---
Left message with podiatry resident regarding wound care orders for patients left return number [phone].
--- NOTE | 2019-08-05 11:29 | NUR ---
Dr. Rios notified of wound care recommendations.
[2019-08-05 11:44] VITALS: BP 143/57
--- NOTE | 2019-08-05 11:54 | NUR ---
PHYSICAL THERAPY Doctors orders for Gladys CHOE received. Thank you. Bella Stewart, PT, DPT
--- NOTE | 2019-08-05 12:30 | NUR ---
Patient is able to return to [facility] when medically stable. AIRCRAFT LOADMASTER SUPERINTENDENT faxed updates to [facility]. -ERICA Ruvalcaba
--- NOTE | 2019-08-05 13:20 | NUR ---
PHYSICAL THERAPY Patient was seen this pm 1;1 for therapy visit and was resting comfortably supine in bed upon therapist arrival. Patient identified by name / and presented with IV treatment / wound vac on L LE. Patient reports no c/o's pain this afternoon and reviewed NWB status on L LE including B feet wrapped in Gauze. Patient transfers supine to sit EOB with MOD A x 2, tolerating static EOB sit x several minutes. Patient instructed on safe transfer technique prior to performing sit to stand transfer MOD A, demonstrating very slow rise. Patient had a difficult time maintaining NWB status on L LE approx 50% of time. Patient tolerated approx 1 minute static stand x 2 trials and returned to to supine in bed secondary to quick onset of fatigue and c/o B elbow pain from use of wh walker. Patient remained in bed with call light, tray table, telephone and bed alarm for safety. Will continue per POC as tolerated, total treatment time 14 minutes. Zachary Valerio, LAMPS TESTER AND INSPECTOR
--- NOTE | 2019-08-05 13:30 | NUR ---
Occupational therapy orders received and OT evaluation and POC established in full on floor five. Patient precautions include fall risk, NWB L LE, ww use, IV line, wound vac, bed alarm, and b/l foot gauze wrappings. Per OT eval, OT recommends SNF. Patient would benefit from continued OT treatment to maximize independence with ADLS and functional transfers with her weight bearing status. Patient complexity is low, [id number]. Thank you for the referral. Akosua Hernandez, OTR/L
[2019-08-05 16:00] VITALS: BP 113/72
--- NOTE | 2019-08-05 19:40 | NUR ---
PATIENT SITTING UP IN BED WATCHING TV. WOUND VAC TO LEFT FOOT INTACT AND FUNCTIONING. HEEL PROTECTOR TO RIGHT FOOT. NO COMPLAINTS AT THIS TIME. BED LOCKED IN LOWEST POSITION. CALL LIGHT WITHIN REACH.
[2019-08-05 20:00] VITALS: BP 143/58
[2019-08-06] VITALS: BP 141/53
--- NOTE | 2019-08-06 05:54 | NUR ---
Upon discharge recommend patient to follow up for wound care in outpatient setting continue current wound care orders at discharging facility.
[2019-08-06 06:48] LABS: BASO # 0.1 10*3/uL (0.0-0.1); BASO % 0.8 % (0.0-1.0); EOS # 0.3 10*3/uL (0.0-0.4); EOS % 4.1 % (1.0-4.0); HEMATOCRIT 37.8 % (37.0-47.0); HEMOGLOBIN 12.1 g/dl (12.0-16.0); LYMPH # 2.9 10*3/uL (1.3-4.4); LYMPH % 44.5 % (27.0-41.0); MEAN CORPUSCULAR HGB 28.8 pg (27.0-31.0); MEAN PLATELET VOLUME 10.1 fl (9.6-12.3); MONO # 0.6 10*3/uL (0.1-1.0); MONO % 9.2 % (3.0-9.0); NEUT # 2.6 10*3/uL (2.3-7.9); NEUT % 40.6 % (47.0-73.0); PLATELET COUNT AUTOMATED 297 10*3/uL (130-400); RED CELL DISTRI WIDTH 13.2 % (0-14.5); WHITE BLOOD COUNT 6.4 10*3/uL (4.8-10.8)
[2019-08-06 07:04] LABS: ALBUMIN 2.3 gm/dl (3.1-4.5); ALKALINE PHOSPHATASE 107 U/L (45-117); BUN 19 mg/dl (7-24); CHLORIDE 111 mmol/L (98-107); CREATININE 0.75 mg/dL (0.55-1.02); POTASSIUM 3.8 mmol/L (3.5-5.1); SGOT/AST 25 IU/L (3-35); SGPT/ALT 27 U/L (12-78); SODIUM 142 mmol/L (136-145); TOTAL PROTEIN 7.2 gm/dL (6.4-8.2)
[2019-08-06 08:00] VITALS: BP 158/67
--- NOTE | 2019-08-06 08:23 | NUR ---
Spoke with Dr. Ryan regarding wound care orders for patients bilateral lower extremities. He stated he will be in later this morning and will update the orders.
--- NOTE | 2019-08-06 10:25 | NUR ---
OT NOTE Pt was seen this A.M. 1:1 for 25 minute OT session. Upon arrival pt was supine in bed. Pt identified by name and and had no complaints at this time. Pt transferred supine to sit EOB with Romulo for assist with UB. Pt was educated throughout on bed mobility techniques for increased I. Pt completed multiple sit to stand transfers from bed level with modA X 2 and use of w/w for UE support. Pt was educated throughout on proper hand placement and transfer technique for increased I. Pt required constant verbal prompts for maintaining NWB status to LLE, pt had poor carry over and was aprox 50% compliant. Challenged pt's static standing tolerance needed for increased I in self care tasks and functional transfers. Pt was able to tolerate aprox 10-20 seconds for inital attempts and then with max verbal prompts for encouragement pt was able to tolerate aprox 60 seconds before sitting due to fatigue. Standing pivot was completed from the EOB to the recliner with modA X 2. Pt was left sitting upright in the recliner with call light in hand, tray table in place, and body alarm activated for safety. Continue with rec D/C plan to SNF. FRANCO Reid/Gladys
--- NOTE | 2019-08-06 10:30 | NUR ---
Dr. Ryan from podiatry called regarding discharge waiting on final ID antibiotic recommendations. Spoke to ID office and Maryan, secretary specialist, is not able to tell when the physician is going to make rounds. Dr. Patel is seeing patients for [place]. Dr. Reed is not available this week. Will wait to see if ID makes rounds and their recommendations. Explained if the physician doesn't round then CM will call office back to get in touch with physician and she verbalized an understanding.
--- NOTE | 2019-08-06 10:30 | NUR ---
Automatic Nailing Machine Feeder in to see patient. She is short term at [facility] and can return there when medically stable. food service worker following.
--- NOTE | 2019-08-06 10:53 | NUR ---
PHYSICAL THERAPY Patient presented to therapy lying supine in bed with head of bed elevated and bed alarm activated. Patient was identified by name and on wristband. Patient gives informed consent for treatment. Patient transferred supine to sitting at EOB with MIN A X 1. Patient sat on EOB unassisted. Patient sit to stand from EOB with MOD A X 2 and verbal cues for pushing off of bed with one hand. Patient stood at Walker with CGA X 2 for 4 attempts with 1st) 10 seconds 2nd) 15 seconds 3rd) 60 seconds 4th) 18 seconds with CGA X 2 AND VERBAL CUES for maintaining NWB status on L LE. Patient required verbal cues for proper NWB technique with walker. Patient was also given visual demonstrations by this RETAIL SALES ASSOCIATE for proper technique for NWB with Walker. Patient had to sit each time following standing tolerances attempted due to fatigue and weakness. Patient transferred stand pivot transfer into bedside chair with CGA X 2 WITH VERBAL CUES FOR PROPER TECHNIQUE AND TO MAINTAIN NWB STATUS ON L LE. Patient's NURSE WAS CONSULTED, DANIELLA COFFEY and she was asked by this RETAIL SALES ASSOCIATE what the patient's wt bearing staus is on the R LE and her response was that there are NO WT, BEARING RESTRICTIONS on the R LE. Patient was left in bedside chair with chair alarm tested and attached, wound vac in L LE plugged in, and call light within reach. Patient was 1:1 with this RETAIL SALES ASSOCIATE for 25 minutes total. TERRI NICOLE RETAIL SALES ASSOCIATE
[2019-08-06 12:00] VITALS: BP 114/62
--- NOTE | 2019-08-06 12:09 | NUR ---
Per Dr. Ryan ID is not rounding until tomorrow, Monday.
--- NOTE | 2019-08-06 13:21 | NUR ---
OT NOTE Attempted to see pt this P.M. for second OT session and upon arrival pt reported that she had just got into bed about thirty minutes ago and was very fatigued. Pt requesting to rest at this time. Will check back at a later time/date and continue with POC as able. FRANCO Reid/Gladys
--- NOTE | 2019-08-06 15:02 | NUR ---
PHYSICAL THERAPY Patient was approached for therapy session this date and patient requested that she rest instead this afternoon, because she just got back into bed 30 minutes ago. She says she sat in the chair all morning long and doesn't want to get back up right now. Will check back with patient at a later time/ date. TERRI NICOLE CANVAS GOODS FABRICATOR
[2019-08-06 16:00] VITALS: BP 122/62
[2019-08-06 20:00] VITALS: BP 137/50
--- NOTE | 2019-08-06 20:16 | NUR ---
24 HR chart check completed.
[2019-08-07] VITALS: BP 139/47
[2019-08-07 08:00] VITALS: BP 135/51
--- NOTE | 2019-08-07 10:03 | NUR ---
OT NOTE Pt was seen this A.M. 1:1 for 26 minute OT session. Upon arrival pt was supine in bed. Pt identified by name and and had no complaints at this time. Pt presented to therapy with wound vac to LLE in place which remained on throughout the entire session. While short sitting in bed pt donned R sock with Romulo for assist with managing over wrapping. Pt transferred supine to sit EOB with Romulo and use of bed rail for UE support. Pt was re-educated on NWB status to LLE, pt verbalized understanding. Multiple sit to stand transfers were completed from the bed level with modA X 2 and use of w/w for UE support. Challenged pt's static standing tolerance needed for increased I in self care tasks and functional transfers pt was able to tolerate aprox 20-30 seconds and with last trial pt tolerated 80 seconds. Pt required constant verbal prompts throughout due to being less than 50% compliant with NWB status and required verbal prompts for encouragement. Standing pivot then completed from the EOB to the recliner with Romulo due to occasional LOB backwards that required modA to correct. Pt was left sitting upright in the recliner with call light in hand, tray table in place, and body alarm activated for safety. Continue with rec D/C plan to SNF. WILLIAM Reid
--- NOTE | 2019-08-07 10:40 | NUR ---
PHYSICAL THERAPY Patient seen this am 1:1 for therapy visit and was supine in bed following breakfast upon therapist arrival. Patient identified by name / and presented with L LE wound vac. Patient reports no c/o's pain this morning and transfers supine to sit EOB with MIN A. Patient remains NWB on L LE and reviewed WB precautions voicing her understanding. Patient however needed multiple v/c's to comply with WB status while transfering sit to stand MOD A x 2, including v/c for proper hand placement and use of wh walker standing support. Patient completed SPT to bedside chair, MOD A, demonstrating POOR walker safety and < 50% compliant with NWB status on L LE. Patient remained in bedside chair with call light, tray table, telephone and body alarm for safety. Will continue per POC as tolerated, total treatment time 14 minutes. Zachary Valerio, RIGHT OF WAY CUTTER
[2019-08-07 12:00] VITALS: BP 134/52
--- NOTE | 2019-08-07 12:40 | NUR ---
NOTIFIED ID OF CONSULT.
--- NOTE | 2019-08-07 13:49 | NUR ---
OT NOTE Attempted to see pt this P.M. for second OT session and upon arrival pt was supine in bed. Pt reported that she jsut returned to bed and was wanting to rest at this time. Will check back at a later time/date and continue with POC as able. FRANCO Reid/Gladys
[2019-08-07] MEDS ORDERED: ZOSYN 3.373.375 GM/5 IV (14:53)
--- NOTE | 2019-08-07 15:08 | NUR ---
BOILER CLEANER faxed medicine script to [facility] -ERICA Ruvalcaba
--- NOTE | 2019-08-07 15:25 | NUR ---
ONCOLOGY COORDINATOR spoke with [facility] who stated the patients wound vac is at their facility and she would bring it to this facility in the morning. -ERICA Ruvalcaba
[2019-08-07 16:00] VITALS: BP 144/64
[2019-08-07 20:00] VITALS: BP 155/48
--- NOTE | 2019-08-07 23:00 | NUR ---
ASSUMED CARE FOR THIS PT AT THIS TIME. PT RESTING QUIETLY IN BED. BED ALARM ON. CALL LIGHT IN REACH.
[2019-08-08] VITALS: BP 135/53
[2019-08-08 08:00] VITALS: BP 143/47
--- NOTE | 2019-08-08 10:53 | NUR ---
OT NOTE Attempted to see pt this A.M. for OT session and upon arrival pt was out of the room for medical procedure. Will check back at a later time/date and continue with POC as able. FRANCO Reid/Gladys
--- NOTE | 2019-08-08 10:57 | NUR ---
[facility] is stating that the patient is now required to make a payment before she is able to return as she is now into her copay days. The patient is down getting her PICC placed. ERICA reached out to the patients daughter batsheva, the phone number is disconnected. ERICA reached out to the patients son, Jovanny, no voicemail is set up. ERICA spoke with Vat Skimmer Belkis and she is aware of the new situation. Suri is also aware. -ERICA Ruvalcaba
--- NOTE | 2019-08-08 11:00 | NUR ---
PHYSICAL THERAPY Patient was out her room for a medical procedure this am and unavailable for therapy at this time. Will continue per POC as able. Zachary Valerio, NATUROPATHIC PHYSICIAN
[2019-08-08 12:00] VITALS: BP 140/52
--- NOTE | 2019-08-08 13:24 | NUR ---
ADDICTION SPECIALIST spoke with the patient. She stated she was able to reach her son in regards to needing a payment for [facility]. The patient stated once her son is off work at 2:30pm he will be on his way to make the patient. Once it is made Chasity-[facility] will let me know if its okay for the patient to return. -ERICA Ruvalcaba
--- NOTE | 2019-08-08 14:58 | NUR ---
ERICA followed up with the patients son who stated he is on his way to [facility] to speak with their billing department now. -ERICA Ruvalcaba
--- NOTE | 2019-08-08 15:24 | NUR ---
NIB ASSEMBLER faxed discharge orders to [facility]. NIB ASSEMBLER was able to arrange transportation via [facility] for the patient to return to their facility. NIB ASSEMBLER spoke with RNNoemi about this. NIB ASSEMBLER will notify patient of her being transferred to [facility] today. -ERICA Ruvalcaba
--- NOTE | 2019-08-08 15:37 | NUR ---
PT REFUSED TO HAVE DISCHARGE WOUND PHOTOS TAKEN. PT STATES PODIATRY JUST DRESSED THEM AND SHE DOES NOT WANT THE DRESSINGS REMOVED.
--- NOTE | 2019-08-08 16:20 | NUR ---
Discharge instructions reviewed with patient/family. Patient receptive and verbalizes understanding. Follow-up care arranged. Written instructions given to patient/family. SAIRA LOPEZ
--- NOTE | 2019-08-09 08:16 | NUR ---
PHYSICAL THERAPY CO-SIGN I approve of the Physical Therapy notes written above. Bella Stewart, PT, DPT
--- NOTE | 2019-08-09 16:21 | NUR ---
OCCUPATIONAL THERAPY CO-SIGN I approve of the Occupational Therapy notes written above. ROSA CARRION OTR/Gladys
== END 2019-08-08 16:20 | disposition other institution (70) | DRG 871 ==
LOC: ED 08:54 → EDHOLD 14:08 → 5E 14:08
PROVIDERS: Emergency Medicine; Internal Medicine; Student in an Organized Health Care Education/Training Program; ADMIT Family Medicine
PROC: 02HV33Z Insertion of Infusion Device into Superior Vena Cava, Percutaneous Approach (ICD-10-PCS; principal; 2019-08-08)
DX: A41.9 Sepsis, unspecified organism (principal); G93.41 Metabolic encephalopathy; N39.0 Urinary tract infection, site not specified; E87.1 Hypo-osmolality and hyponatremia; E44.1 Mild protein-calorie malnutrition; M86.672 Other chronic osteomyelitis, left ankle and foot; I10 Essential (primary) hypertension; E11.69 Type 2 diabetes mellitus with other specified complication; E11.59 Type 2 diabetes mellitus with other circulatory complications; E78.5 Hyperlipidemia, unspecified; L85.3 Xerosis cutis; B96.4 Proteus (mirabilis) (morganii) as the cause of diseases classified elsewhere; B95.2 Enterococcus as the cause of diseases classified elsewhere; B96.20 Unspecified Escherichia coli [E. coli] as the cause of diseases classified elsewhere; L97.519 Non-pressure chronic ulcer of other part of right foot with unspecified severity; E11.51 Type 2 diabetes mellitus with diabetic peripheral angiopathy without gangrene; B96.89 Other specified bacterial agents as the cause of diseases classified elsewhere; D72.810 Lymphocytopenia; E11.65 Type 2 diabetes mellitus with hyperglycemia; D72.9 Disorder of white blood cells, unspecified; E11.621 Type 2 diabetes mellitus with foot ulcer; L97.529 Non-pressure chronic ulcer of other part of left foot with unspecified severity; Z79.4 Long term (current) use of insulin; I25.2 Old myocardial infarction; Z90.49 Acquired absence of other specified parts of digestive tract; Z90.710 Acquired absence of both cervix and uterus; Z95.1 Presence of aortocoronary bypass graft; Z87.891 Personal history of nicotine dependence; Z89.412 Acquired absence of left great toe; Z79.899 Other long term (current) drug therapy; Z79.02 Long term (current) use of antithrombotics/antiplatelets; Z68.33 Body mass index [BMI] 33.0-33.9, adult

== ENCOUNTER → 2019-09-04 | Day surgery (SDC) | payer MEDICARE ==
[~2019-09-04] VITALS: Wt 104.3 kg
[~2019-09-04] MED LIST changes: +THEREMS-M1 EACH PO; +ULTRAM50 MG PO
[2019-09-04 13:40] VITALS: BP 140/76
[2019-09-04 14:50] VITALS: BP 169/79
[2019-09-04 15:05] VITALS: BP 142/50
[2019-09-04 15:20] VITALS: BP 133/58
[2019-09-05 16:07] LABS: ACID FAST SPEC PROCESSING Tissue Grinding (.)
== END | disposition home or self-care (01) ==
LOC: SDC 09-02 14:45
PROVIDERS: Podiatrist
DX: E11.621 Type 2 diabetes mellitus with foot ulcer (principal); I87.2 Venous insufficiency (chronic) (peripheral); N17.0 Acute kidney failure with tubular necrosis; I10 Essential (primary) hypertension; E87.1 Hypo-osmolality and hyponatremia; E78.5 Hyperlipidemia, unspecified; E43 Unspecified severe protein-calorie malnutrition; M86.272 Subacute osteomyelitis, left ankle and foot; A41.9 Sepsis, unspecified organism; G93.41 Metabolic encephalopathy; R82.998 Other abnormal findings in urine; E66.01 Morbid (severe) obesity due to excess calories; Z68.35 Body mass index [BMI] 35.0-35.9, adult; Z89.412 Acquired absence of left great toe; I25.10 Atherosclerotic heart disease of native coronary artery without angina pectoris; Z98.890 Other specified postprocedural states; Z79.899 Other long term (current) drug therapy

== ENCOUNTER 2019-10-19 21:50 | Emergency (ER) | payer MEDICARE ==
[~2019-10-19] VITALS: Ht 167.6 cm; Wt 136.1 kg
== END 2019-10-19 22:25 | disposition expired ==
LOC: ED 21:50
DX: I46.9 Cardiac arrest, cause unspecified (principal); I73.9 Peripheral vascular disease, unspecified; E11.9 Type 2 diabetes mellitus without complications; E78.5 Hyperlipidemia, unspecified; I10 Essential (primary) hypertension; I25.2 Old myocardial infarction; Z89.412 Acquired absence of left great toe; Z87.891 Personal history of nicotine dependence; Z88.0 Allergy status to penicillin; Z79.4 Long term (current) use of insulin; Z79.899 Other long term (current) drug therapy